=== PATIENT | male | born 1950 | race Caucasian/White ===

== ENCOUNTER 2017-09-12 18:17 | Inpatient (IN) | payer MEDICARE ==
[~2017-09-12] VITALS: Ht 180.3 cm; Wt 40.6 kg
[2017-09-12 18:58] LABS: BASOPHILS 0 % (0-2); EOSINOPHILS 0 % (0-7); HEMATOCRIT 39.9 % (36.0-48.0); HEMOGLOBIN 12.9 g/dL (12-16); IMMATURE GRANULOCYTES 0.3 % (0-5); LYMPHOCYTES 4.8 % (15-50); MCH 26.6 pg (26.0-34.0); MCHC 32.3 g/dL (31.0-37.0); MCV 82.3 fL (80.0-100.0); MEAN PLATELET VOLUME 10.8 fL (7.4-10.4); MONOCYTES 5.6 % (2-11); NEUTROPHILS 89.3 % (40-80); PLATELET COUNT 127 10x3/uL (130-400); RBC 4.85 10x6/uL (4.00-5.40); RDW 15.3 % (11.5-14.5); WBC 14.8 10x3/uL (4.8-10.8)
[2017-09-12 19:13] LABS: APTT 30.5 SECONDS (22.8-39.4); INR 1.39 (0.85-1.17); PROTIME 16.6 SECONDS (11.6-15.0)
[2017-09-12 19:39] LABS: D-DIMER-QUANTITATIVE 19.45 ug/mLFEU (0.20-0.54)
[2017-09-12 19:43] LABS: ALKALINE PHOSPHATASE 99 U/L (46-116); ALT (SGPT) 64 U/L (10-68); CALC OSMOLALITY 306 mosm/kg (275-300); CALCIUM 8.5 mg/dL (8.5-10.1); CARBON DIOXIDE 17.5 mmol/L (21.0-32.0); CHLORIDE - SERUM 108 mmol/L (98-107); CREATININE - SERUM 1.7 mg/dL (0.6-1.3); GLUCOSE 116 mg/dL (74-106); POTASSIUM - SERUM 4.4 mmol/L (3.5-5.1); PROTEIN - SERUM 6.3 g/dL (6.4-8.2); SODIUM 144 mmol/L (136-145); UREA NITROGEN 66 mg/dL (7-18); eGFR NON AFRICAN AMERICAN 32 mL/min (90-120)
[2017-09-12 20:00] LABS: CKMB 11.5 U/L (0.0-3.6); CREATINE KINASE 240 UL (21-215); PRO BNP 210880 pg/mL (0-125)
[2017-09-12 20:02] LABS: TROPONIN-I 0.628 ng/mL (0.000-0.060)
[2017-09-13 01:57] VITALS: BP 177/93; BMI 14.5
[2017-09-13 04:00] VITALS: BP 166/91
[2017-09-13 05:48] LABS: BASOPHILS 0 % (0-2); EOSINOPHILS 0 % (0-7); HEMATOCRIT 38.5 % (42.0-54.0); HEMOGLOBIN 12.5 g/dL (13.5-17.5); IMMATURE GRANULOCYTES 0.1 % (0-5); MCH 26.5 pg (26.0-34.0); MCHC 32.5 g/dL (31.0-37.0); MCV 81.6 fL (80.0-100.0); MONOCYTES 3.2 % (2-11); NEUTROPHILS 90.7 % (40-80); PLATELET COUNT 112 10x3/uL (130-400); RBC 4.72 10x6/uL (4.20-6.10); RDW 15.4 % (11.5-14.5)
[2017-09-13 05:49] LABS: WBC 8.9 10x3/uL (4.8-10.8)
[2017-09-13 06:51] LABS: CALC OSMOLALITY 308 mosm/kg (275-300); CALCIUM 8.1 mg/dL (8.5-10.1); CARBON DIOXIDE 15.1 mmol/L (21.0-32.0); CHLORIDE - SERUM 107 mmol/L (98-107); CKMB 25.8 U/L (0.0-3.6); CREATINE KINASE 319 UL (21-232); CREATININE - SERUM 1.7 mg/dL (0.6-1.3); GLUCOSE 119 mg/dL (74-106); POTASSIUM - SERUM 4.3 mmol/L (3.5-5.1); SODIUM 145 mmol/L (136-145); TROPONIN-I 3.371 ng/mL (0.000-0.060); UREA NITROGEN 67 mg/dL (7-18); eGFR NON AFRICAN AMERICAN 43 mL/min (90-120)
[2017-09-13 09:24] VITALS: BP 166/80
[2017-09-13 11:38] VITALS: BP 180/88
[2017-09-13 11:40] VITALS: Ht 180.3 cm; Wt 40.6 kg
[2017-09-13 13:14] LABS: CKMB 30.3 U/L (0.0-3.6); CREATINE KINASE 317 UL (21-232)
[2017-09-13 15:59] VITALS: BP 173/87
[2017-09-13 18:38] LABS: CKMB 22.3 U/L (0.0-3.6); CREATINE KINASE 284 UL (21-232); TROPONIN-I 7.062 ng/mL (0.000-0.060)
[2017-09-13 20:30] VITALS: BP 155/87
[2017-09-14 00:30] VITALS: BP 172/72
[2017-09-14 04:30] VITALS: BP 166/79
[2017-09-14 06:28] LABS: BASOPHILS 0.1 % (0-2); EOSINOPHILS 0 % (0-7); HEMATOCRIT 42.2 % (42.0-54.0); HEMOGLOBIN 13.4 g/dL (13.5-17.5); IMMATURE GRANULOCYTES 0.2 % (0-5); LYMPHOCYTES 5.3 % (15-50); MCH 26.4 pg (26.0-34.0); MCHC 31.8 g/dL (31.0-37.0); MCV 83.2 fL (80.0-100.0); MEAN PLATELET VOLUME 10.8 fL (7.4-10.4); MONOCYTES 4.2 % (2-11); NEUTROPHILS 90.2 % (40-80); PLATELET COUNT 122 10x3/uL (130-400); RBC 5.07 10x6/uL (4.20-6.10); RDW 15.5 % (11.5-14.5)
[2017-09-14 06:50] LABS: BILIRUBIN - TOTAL 0.67 mg/dL (0.2-1.3); CALCIUM 8.2 mg/dL (8.5-10.1); CREATININE - SERUM 1.7 mg/dL (0.6-1.3); MAGNESIUM - SERUM 2.4 mg/dL (1.8-2.4); PHOSPHOROUS 4.6 mg/dL (2.5-4.9); PROTEIN - SERUM 7.1 g/dL (6.4-8.2)
[2017-09-14 06:54] LABS: ANION GAP 18.4 mmol/L (8-16); CARBON DIOXIDE 22.1 mmol/L (21.0-32.0); POTASSIUM - SERUM 3.5 mmol/L (3.5-5.1); TROPONIN-I 5.818 ng/mL (0.000-0.060)
[2017-09-14 08:29] VITALS: BP 162/79
[2017-09-14 11:31] VITALS: BP 143/68
[2017-09-14 15:47] VITALS: BP 156/89
[2017-09-14 20:30] VITALS: BP 112/92
[2017-09-15 00:30] VITALS: BP 153/68
[2017-09-15 04:30] VITALS: BP 164/79
[2017-09-15 04:32] LABS: BASOPHILS 0 % (0-2); EOSINOPHILS 0 % (0-7); HEMATOCRIT 38.7 % (42.0-54.0); HEMOGLOBIN 12.4 g/dL (13.5-17.5); IMMATURE GRANULOCYTES 0.2 % (0-5); LYMPHOCYTES 2.4 % (15-50); MCH 26.3 pg (26.0-34.0); MEAN PLATELET VOLUME 10.8 fL (7.4-10.4); MONOCYTES 2.1 % (2-11); NEUTROPHILS 95.3 % (40-80); PLATELET COUNT 142 10x3/uL (130-400); RBC 4.72 10x6/uL (4.20-6.10); RDW 15.2 % (11.5-14.5)
[2017-09-15 04:37] LABS: WBC 9.7 10x3/uL (4.8-10.8)
[2017-09-15 05:02] LABS: ALBUMIN 2.7 g/dL (3.4-5.0); ANION GAP 16.5 mmol/L (8-16); BILIRUBIN - TOTAL 0.7 mg/dL (0.2-1.3); CALCIUM 8.4 mg/dL (8.5-10.1); CARBON DIOXIDE 25.1 mmol/L (21.0-32.0); CHOL - HDL RATIO 3.3 ratio (2.3-4.9); CREATININE - SERUM 1.5 mg/dL (0.6-1.3); LDL-HDL RATIO 1.6 ratio (1.5-3.5); MAGNESIUM - SERUM 2.3 mg/dL (1.8-2.4); PHOSPHOROUS 4.6 mg/dL (2.5-4.9); POTASSIUM - SERUM 3.6 mmol/L (3.5-5.1); PROTEIN - SERUM 6.7 g/dL (6.4-8.2); THYROID STIMULATING HORMONE 0.62 uIU/mL (0.36-3.74)
[2017-09-15 08:24] VITALS: BP 159/74
[2017-09-15 11:12] VITALS: BP 151/75
[2017-09-15 15:07] VITALS: BP 136/65
[2017-09-15 20:00] VITALS: BP 168/117
[2017-09-16 00:49] VITALS: BP 171/70
[2017-09-16 05:56] LABS: BASOPHILS 0 % (0-2); EOSINOPHILS 0 % (0-7); HEMATOCRIT 41.6 % (42.0-54.0); HEMOGLOBIN 13.1 g/dL (13.5-17.5); IMMATURE GRANULOCYTES 0.2 % (0-5); LYMPHOCYTES 1.8 % (15-50); MCH 26.1 pg (26.0-34.0); MCHC 31.5 g/dL (31.0-37.0); MEAN PLATELET VOLUME 10.6 fL (7.4-10.4); MONOCYTES 4.7 % (2-11); NEUTROPHILS 93.3 % (40-80); PLATELET COUNT 166 10x3/uL (130-400); RBC 5.01 10x6/uL (4.20-6.10); RDW 15.1 % (11.5-14.5)
[2017-09-16 06:21] LABS: ANION GAP 13.1 mmol/L (8-16); CALCIUM 8.7 mg/dL (8.5-10.1); CARBON DIOXIDE 27.3 mmol/L (21.0-32.0); CREATININE - SERUM 1.4 mg/dL (0.6-1.3); MAGNESIUM - SERUM 2.3 mg/dL (1.8-2.4); PHOSPHOROUS 3.9 mg/dL (2.5-4.9); POTASSIUM - SERUM 3.4 mmol/L (3.5-5.1)
[2017-09-16 06:27] LABS: WBC 14.9 10x3/uL (4.8-10.8)
[2017-09-16 06:46] VITALS: BP 137/68
[2017-09-16 07:44] VITALS: BP 184/80
[2017-09-16 11:23] VITALS: BP 142/67
[2017-09-16 14:46] VITALS: BP 130/66
[2017-09-16 21:33] VITALS: BP 124/52
[2017-09-17 01:40] VITALS: BP 136/78
[2017-09-17 05:35] VITALS: BP 147/79
[2017-09-17 05:45] LABS: BASOPHILS 0 % (0-2); EOSINOPHILS 0 % (0-7); HEMATOCRIT 42.5 % (42.0-54.0); HEMOGLOBIN 13.4 g/dL (13.5-17.5); IMMATURE GRANULOCYTES 0.2 % (0-5); LYMPHOCYTES 3.6 % (15-50); MCH 26.3 pg (26.0-34.0); MCHC 31.5 g/dL (31.0-37.0); MCV 83.3 fL (80.0-100.0); MEAN PLATELET VOLUME 10.8 fL (7.4-10.4); MONOCYTES 3.5 % (2-11); NEUTROPHILS 92.7 % (40-80); PLATELET COUNT 163 10x3/uL (130-400); RDW 15.2 % (11.5-14.5); WBC 16.4 10x3/uL (4.8-10.8)
[2017-09-17 06:08] LABS: ANION GAP 14.2 mmol/L (8-16); CALCIUM 8.7 mg/dL (8.5-10.1); CARBON DIOXIDE 26.5 mmol/L (21.0-32.0); CREATININE - SERUM 1.3 mg/dL (0.6-1.3); MAGNESIUM - SERUM 2.6 mg/dL (1.8-2.4); PHOSPHOROUS 3.1 mg/dL (2.5-4.9); POTASSIUM - SERUM 3.7 mmol/L (3.5-5.1)
[2017-09-17 08:00] VITALS: BP 160/82
[2017-09-17 17:09] VITALS: BP 155/78
[2017-09-17 21:01] VITALS: BP 145/55
[2017-09-18 06:05] LABS: BASOPHILS 0 % (0-2); EOSINOPHILS 0 % (0-7); HEMATOCRIT 38.1 % (42.0-54.0); HEMOGLOBIN 11.9 g/dL (13.5-17.5); IMMATURE GRANULOCYTES 0.2 % (0-5); LYMPHOCYTES 2.3 % (15-50); MCH 26.2 pg (26.0-34.0); MCHC 31.2 g/dL (31.0-37.0); MCV 83.7 fL (80.0-100.0); MEAN PLATELET VOLUME 10.3 fL (7.4-10.4); MONOCYTES 2.7 % (2-11); NEUTROPHILS 94.8 % (40-80); PLATELET COUNT 159 10x3/uL (130-400); RBC 4.55 10x6/uL (4.20-6.10); RDW 15.6 % (11.5-14.5); WBC 17.7 10x3/uL (4.8-10.8)
[2017-09-18 06:22] VITALS: BP 165/74
[2017-09-18 06:24] LABS: CALCIUM 8.4 mg/dL (8.5-10.1); CARBON DIOXIDE 24.9 mmol/L (21.0-32.0); CREATININE - SERUM 1.3 mg/dL (0.6-1.3); MAGNESIUM - SERUM 2.4 mg/dL (1.8-2.4); POTASSIUM - SERUM 3.9 mmol/L (3.5-5.1)
[2017-09-18 08:51] VITALS: BP 132/68
[2017-09-18 11:40] VITALS: BP 136/75
[2017-09-18 16:48] VITALS: BP 141/70
[2017-09-18 22:13] VITALS: BP 175/74
[2017-09-19 01:26] VITALS: BP 182/79
[2017-09-19 05:00] VITALS: BP 173/75
[2017-09-19 06:08] LABS: BASOPHILS 0 % (0-2); EOSINOPHILS 0 % (0-7); HEMATOCRIT 37.4 % (42.0-54.0); HEMOGLOBIN 11.6 g/dL (13.5-17.5); IMMATURE GRANULOCYTES 0.4 % (0-5); LYMPHOCYTES 1.1 % (15-50); MCV 83.9 fL (80.0-100.0); MEAN PLATELET VOLUME 10.7 fL (7.4-10.4); MONOCYTES 2.7 % (2-11); NEUTROPHILS 95.8 % (40-80); PLATELET COUNT 188 10x3/uL (130-400); RBC 4.46 10x6/uL (4.20-6.10); RDW 15.5 % (11.5-14.5); WBC 18.1 10x3/uL (4.8-10.8)
[2017-09-19 06:22] LABS: ALBUMIN 2.2 g/dL (3.4-5.0); ANION GAP 13.4 mmol/L (8-16); BILIRUBIN - TOTAL 0.5 mg/dL (0.2-1.3); CALCIUM 8.6 mg/dL (8.5-10.1); CARBON DIOXIDE 23.8 mmol/L (21.0-32.0); CREATININE - SERUM 1.2 mg/dL (0.6-1.3); POTASSIUM - SERUM 4.2 mmol/L (3.5-5.1)
[2017-09-19 08:38] VITALS: BP 193/80
[2017-09-19 11:40] VITALS: BP 107/74
[2017-09-19 15:47] VITALS: BP 171/81
[2017-09-19 19:00] VITALS: BP 148/69
[2017-09-20] VITALS: BP 168/76
[2017-09-20 04:00] VITALS: BP 112/76
[2017-09-20 07:53] VITALS: BP 187/72
[2017-09-20 11:11] VITALS: BP 146/90
[2017-09-20 15:19] VITALS: BP 172/73
[2017-09-20 19:00] VITALS: BP 196/83
[2017-09-21] VITALS: BP 173/86
[2017-09-21 04:00] VITALS: BP 178/76
[2017-09-21 06:16] LABS: BASOPHILS 0.1 % (0-2); EOSINOPHILS 0.3 % (0-7); HEMATOCRIT 36.6 % (42.0-54.0); HEMOGLOBIN 11.9 g/dL (13.5-17.5); IMMATURE GRANULOCYTES 0.3 % (0-5); LYMPHOCYTES 4.1 % (15-50); MCH 26.4 pg (26.0-34.0); MCHC 32.5 g/dL (31.0-37.0); MCV 81.2 fL (80.0-100.0); MEAN PLATELET VOLUME 10.6 fL (7.4-10.4); MONOCYTES 7.9 % (2-11); NEUTROPHILS 87.3 % (40-80); RBC 4.51 10x6/uL (4.20-6.10); RDW 14.9 % (11.5-14.5)
[2017-09-21 06:19] LABS: PLATELET COUNT 239 10x3/uL (130-400)
[2017-09-21 06:33] LABS: CALC OSMOLALITY 273 mosm/kg (275-300); CALCIUM 8.1 mg/dL (8.5-10.1); CARBON DIOXIDE 22.8 mmol/L (21.0-32.0); CHLORIDE - SERUM 102 mmol/L (98-107); GLUCOSE 99 mg/dL (74-106); POTASSIUM - SERUM 3.6 mmol/L (3.5-5.1); SODIUM 134 mmol/L (136-145); UREA NITROGEN 29 mg/dL (7-18); eGFR NON AFRICAN AMERICAN 79 mL/min (90-120)
[2017-09-21 09:53] VITALS: BP 122/68
[2017-09-21 12:49] VITALS: BP 147/71
[2017-09-21 16:30] VITALS: BP 140/70
[2017-09-21 20:00] VITALS: BP 166/76
[2017-09-22] VITALS: BP 190/87
[2017-09-22 04:00] VITALS: BP 158/79
[2017-09-22 06:10] LABS: BASOPHILS 0 % (0-2); EOSINOPHILS 0.2 % (0-7); HEMATOCRIT 38.5 % (42.0-54.0); HEMOGLOBIN 12.2 g/dL (13.5-17.5); IMMATURE GRANULOCYTES 0.6 % (0-5); LYMPHOCYTES 5.2 % (15-50); MCH 26.1 pg (26.0-34.0); MCHC 31.7 g/dL (31.0-37.0); MCV 82.4 fL (80.0-100.0); MEAN PLATELET VOLUME 10.9 fL (7.4-10.4); PLATELET COUNT 269 10x3/uL (130-400); RBC 4.67 10x6/uL (4.20-6.10); RDW 15.1 % (11.5-14.5)
[2017-09-22 06:24] LABS: CALC OSMOLALITY 277 mosm/kg (275-300); CALCIUM 8.2 mg/dL (8.5-10.1); CARBON DIOXIDE 24.9 mmol/L (21.0-32.0); CHLORIDE - SERUM 102 mmol/L (98-107); GLUCOSE 100 mg/dL (74-106); POTASSIUM - SERUM 3.6 mmol/L (3.5-5.1); SODIUM 136 mmol/L (136-145); UREA NITROGEN 30 mg/dL (7-18); eGFR NON AFRICAN AMERICAN 79 mL/min (90-120)
[2017-09-22 08:30] VITALS: BP 155/66
[2017-09-22 11:28] VITALS: BP 147/75
[2017-09-22] MEDS ORDERED: BROVANA15 MCG/2 M INH (11:28)
[2017-09-22] MEDS ORDERED: MEGACE400 MG/10 PO (11:28)
[2017-09-22] MEDS ORDERED: XOPENEX 0.0.63 MG/3 UPD (11:29)
[2017-09-22] MEDS ORDERED: ATROVENT 0.02%2.5 ML UPD (11:29)
[2017-09-22] MEDS ORDERED: LOVENOX40 MG/0.4 SC (11:29)
[2017-09-22] MEDS ORDERED: LOPRESSOR25 MG PO (11:30)
[2017-09-22] MEDS ORDERED: LISINOPRIL5 MG PO (11:30)
[2017-09-22] MEDS ORDERED: TESSALON PERLE100 MG PO (11:31)
[2017-09-22] MEDS ORDERED: D5W 1000 ML I1000 ML IV (11:31)
[2017-09-22] MEDS ORDERED: PULMICORT0.5 MG/21 INH (11:31)
[2017-09-22] MEDS ORDERED: MUCINEX DM ER1 EAC1 PO (11:32)
[2017-09-22] MEDS ORDERED: SINGULAIR10 MG PO (11:32)
[2017-09-22] MEDS ORDERED: FLUTICASONE PRO16 GM NASAL (11:33)
[2017-09-22] MEDS ORDERED: FLORAJEN3 CAPS460 MG PO (11:33)
[2017-09-22] MEDS ORDERED: PREDNISONE20 MG (11:37)
[2017-09-22 15:45] VITALS: BP 138/60
== END 2017-09-22 18:20 | DRG 871 ==
LOC: EDSEX 18:17 → D.ER 18:17 → D.M2 23:40
PROVIDERS: Emergency Medicine; Family Medicine; Internal Medicine Pulmonary Disease
DX: A41.9 Sepsis, unspecified organism (principal); J69.0 Pneumonitis due to inhalation of food and vomit; I50.21 Acute systolic (congestive) heart failure; J96.21 Acute and chronic respiratory failure with hypoxia; I13.0 Hypertensive heart and chronic kidney disease with heart failure and stage 1 through stage 4 chronic kidney disease, or unspecified chronic kidney disease; N17.9 Acute kidney failure, unspecified; I42.9 Cardiomyopathy, unspecified; J44.1 Chronic obstructive pulmonary disease with (acute) exacerbation; I24.8 Other forms of acute ischemic heart disease; E46 Unspecified protein-calorie malnutrition; Z68.1 Body mass index [BMI] 19.9 or less, adult; N18.9 Chronic kidney disease, unspecified; R26.89 Other abnormalities of gait and mobility; I27.20 Pulmonary hypertension, unspecified; F41.9 Anxiety disorder, unspecified; Z72.0 Tobacco use; I08.3 Combined rheumatic disorders of mitral, aortic and tricuspid valves; J30.9 Allergic rhinitis, unspecified; D69.6 Thrombocytopenia, unspecified; Z66 Do not resuscitate

== ENCOUNTER 2017-09-22 15:29 | Inpatient (IN) | payer MEDICARE ==
[~2017-09-22] VITALS: Ht 180.3 cm; Wt 54.9 kg
--- NOTE | ~2017-09-22 | RHP ---
PATIENT: HOLLI NORRIS MEDICAL RECORD: [id number] ACCOUNT: [id number] LOCATION:[facility]1112 : 50 ADMISSION DATE: 09/22/17 REHABILITATION HISTORY AND PHYSICAL EXAMINATION POST ADMISSION PHYSICIAN EXAMINATION POST-ADMISSION PHYSICAL EXAM AND HISTORY AND PHYSICAL DATE OF ADMISSION: 09/22/2017 ADMITTING DIAGNOSES: Congestive heart failure induced myopathy. HISTORY OF PRESENT ILLNESS: The patient is a 67-year-old gentleman who was brought in secondary to congestive heart failure myopathy. He was brought to the ED by family with progressing worsening shortness of breath, nonproductive cough and weakness, has been going on for approximately a few weeks prior to this. He was found to be lethargic, very soft spoken due to his weakness. He was found to be hypoxic and had to be placed on supplemental O2. His BNP was over 21,000. His D-dimer was elevated at 19.45. Chest x-ray showed cardiomegaly and bilateral interstitial and alveolar infiltrates. V/Q scan showed matching bilateral deficits suggesting an intermediate probability of pulmonary emboli. His white count was 14.8 with 89% PMNs. He has also had a positive troponin at 3.37. He has a past medical history of hypertension, lung carcinoma, smoking. He has been treated for acute systolic heart failure with an EF of 20% with cardiomyopathy. He got acute exacerbation of COPD, pneumonia, metabolic encephalopathy, acute kidney injury, and chronic kidney disease with renal insufficiency, poor p.o. intake and debility. He lives at home with his sister and was moderately independent with use of a single point cane and was independent with ADLs. He has had progressive weakness with moderately becoming weaker with extended hospital stay due to poor p.o. intake. He has been seen by speech therapy for oropharyngeal dysphagia and dysarthria of speech, and has been on a mechanical soft diet with nectar thickened liquids and has been continued with speech therapy. He has been weaned down to 2 liters of O2. He has been seen and followed by physical therapy and has proximal weakness with difficulty rising from bed to chair. He is currently minimum assist to total assist with ADLs, max assist to total assist with mobility. He and his family plan on him returning home hopefully moving back in with his sister. COMORBIDITIES: Include oropharyngeal dysphagia, dysarthria of speech, metabolic encephalopathy, acute hypoxic respiratory failure, COPD exacerbation, community-acquired pneumonia, acute systolic CHF. He has got an intermediate probability of pulmonary embolus. He has got pulmonary hypertension, anemia, history of tobacco use, leukocytosis, hypertension, allergic rhinitis, debility, anxiety, tricuspid regurg and aortic insufficiency. PAST MEDICAL HISTORY: Significant for weakness, hypertension, pneumonia, bone cancer, tobacco smoker, urinary incontinence, anorexia, anxiety and skin rash. PAST SURGICAL HISTORY: None. ALLERGIES: No known drug allergies. CURRENT MEDICATIONS: He is on a prednisone tapering dose. He is on Zestril 5 mg daily, Floranex daily. He is on Flonase nasal spray 2 sprays daily, Lovenox 40 mg subQ daily, MiraLax 17 g in 8 ounces of water daily, Singulair 10 mg at HISTORY AND PHYSICAL [id number] HOLLI NORRIS bedtime, metoprolol 25 mg b.i.d., Megace 400 mg b.i.d., Xopenex 0.63 mg q.6 hours p.r.n., Atrovent updrafts, Mucinex 1 tab b.i.d., Pulmicort 0.5 mg b.i.d., Tessalon Perles 100 mg t.i.d. p.r.n. and Brovana 15 mcg b.i.d. HABITS: No current alcohol or tobacco use. He does have a history of tobacco use. FAMILY HISTORY: Noncontributory. SOCIAL HISTORY: The patient hopes to return back home and get back to his prior level of functioning. REVIEW OF SYSTEMS: GENERAL: Does complain of weakness and fatigue. HEENT: Denies cold, cough, or congestion. CARDIOVASCULAR: Denies any chest pain. PHYSICAL EXAMINATION: VITAL SIGNS: Stable, afebrile. GENERAL: Elderly gentleman in no acute distress, alert upon exam. HEENT: Normocephalic and atraumatic. Mucosa moist. NECK: Supple. No lymphadenopathy. LUNGS: Coarse breath sounds bilaterally. CARDIOVASCULAR: Regular rate and rhythm. ABDOMEN: Benign. EXTREMITIES: No clubbing, cyanosis or edema. NEUROLOGIC: Seems intact. LABORATORY DATA: His white count is 11.1, H&H of 11.5 and 36.7, and platelet count is 280. Sodium is 136, potassium 3.7, BUN and creatinine of 13 and 1.2 and blood sugar is noted to be 104. ASSESSMENT: This is a 67-year-old gentleman admitted to the rehab with a working diagnosis of congestive heart failure induced myopathy. The patient has potential to make improvement. We instituted the following multidisciplinary therapies including, but not limited physical, occupational, respiratory, speech, nutritional services, prosthetics and orthotics. Given his complex medical conditions and risk of further medical complications, rehabilitation service cannot be provided at a low level of care such as a skilled nurse facility. PLAN: 1. Admit to [facility] rehab for intensive inpatient therapy to include the following disciplines: A. Physical therapy to improve gait, all transfer skills and bed mobility to a modified independent level. B. Occupational therapy to improve activities of daily living to a modified independent level. C. Case management to assist with discharge planning and placement options. D. Nutrition to assist with nutritional needs. E. Rehabilitation nursing to assist in monitoring the patient's underlying medical conditions and to assist with any type bowel or bladder management. 2. The patient's current medical care and medication will be continued. 3. The patient will be placed on standard fall precautions. 4. The patient's estimated length of stay is approximately 7-10 days. HISTORY AND PHYSICAL [id number] HOLLI NORRIS 5. Discuss this patient during care team staff meeting this week. TRANSINT:[id number] Voice Confirmation ID: [id number] DOCUMENT ID: [id number] CASH notes whether there has been none or any medical/functional change since admission: - No change since prescreen. CASH attests patient continues to be appropriate for IRF: - Continues to be appropriate. SHARITA ROBERT MD at 1355 CC: [id number] DICTATION DATE: 09/23/17 1039 SOLE CEMENTER: 09/23/17 1210 ADM IN [facility] [address] [place] [address]
[~2017-09-22 15:29] MED LIST: ATROVENT 0.02%2.5 ML UPD; BROVANA15 MCG/2 M INH; D5W 1000 ML I1000 ML IV; FLORAJEN3 CAPS460 MG PO; FLUTICASONE PRO16 GM NASAL; LISINOPRIL5 MG PO; LOPRESSOR25 MG PO; LOVENOX40 MG/0.4 SC; MEGACE400 MG/10 PO; MUCINEX DM ER1 EAC1 PO; PREDNISONE20 MG; PULMICORT0.5 MG/21 INH; SINGULAIR10 MG PO; TESSALON PERLE100 MG PO; XOPENEX 0.0.63 MG/3 UPD
[2017-09-22 18:20] VITALS: BP 107/62
[2017-09-22 20:16] VITALS: BP 107/62; BMI 16.9
[2017-09-23 06:46] LABS: BASOPHILS 0 % (0-2); EOSINOPHILS 0.2 % (0-7); HEMATOCRIT 36.7 % (42.0-54.0); HEMOGLOBIN 11.5 g/dL (13.5-17.5); IMMATURE GRANULOCYTES 0.5 % (0-5); LYMPHOCYTES 7.1 % (15-50); MCH 25.8 pg (26.0-34.0); MCHC 31.3 g/dL (31.0-37.0); MCV 82.3 fL (80.0-100.0); MEAN PLATELET VOLUME 10.5 fL (7.4-10.4); NEUTROPHILS 84.2 % (40-80); PLATELET COUNT 280 10x3/uL (130-400); RBC 4.46 10x6/uL (4.20-6.10); RDW 15.1 % (11.5-14.5); WBC 11.1 10x3/uL (4.8-10.8)
[2017-09-23 07:02] LABS: ANION GAP 10.3 mmol/L (8-16); CALCIUM 8.1 mg/dL (8.5-10.1); CARBON DIOXIDE 24.4 mmol/L (21.0-32.0); CREATININE - SERUM 1.2 mg/dL (0.6-1.3); POTASSIUM - SERUM 3.7 mmol/L (3.5-5.1)
[2017-09-23 08:00] VITALS: BP 194/83
[2017-09-23 14:18] VITALS: Ht 180.3 cm; Wt 54.9 kg
[2017-09-23 19:09] VITALS: BP 152/66
[2017-09-24 07:08] LABS: BASOPHILS 0.1 % (0-2); EOSINOPHILS 0.1 % (0-7); HEMATOCRIT 37.2 % (42.0-54.0); HEMOGLOBIN 11.8 g/dL (13.5-17.5); IMMATURE GRANULOCYTES 0.4 % (0-5); LYMPHOCYTES 6.6 % (15-50); MCHC 31.7 g/dL (31.0-37.0); MCV 82.1 fL (80.0-100.0); MEAN PLATELET VOLUME 10.2 fL (7.4-10.4); MONOCYTES 6.1 % (2-11); NEUTROPHILS 86.7 % (40-80); PLATELET COUNT 289 10x3/uL (130-400); RBC 4.53 10x6/uL (4.20-6.10); RDW 15.3 % (11.5-14.5)
[2017-09-24 07:11] LABS: WBC 14.1 10x3/uL (4.8-10.8)
[2017-09-24 07:28] LABS: ANION GAP 13.4 mmol/L (8-16); CARBON DIOXIDE 24.2 mmol/L (21.0-32.0); CREATININE - SERUM 1.3 mg/dL (0.6-1.3); POTASSIUM - SERUM 3.6 mmol/L (3.5-5.1)
[2017-09-24 08:00] VITALS: BP 169/82
[2017-09-24 22:07] VITALS: BP 155/65
[2017-09-25 08:00] VITALS: BP 154/60
[2017-09-25 19:09] VITALS: BP 151/75
[2017-09-26 06:34] LABS: BASOPHILS 0.1 % (0-2); EOSINOPHILS 0.5 % (0-7); HEMATOCRIT 38.1 % (42.0-54.0); HEMOGLOBIN 11.8 g/dL (13.5-17.5); IMMATURE GRANULOCYTES 0.4 % (0-5); LYMPHOCYTES 8.9 % (15-50); MCH 25.8 pg (26.0-34.0); MCV 83.2 fL (80.0-100.0); MEAN PLATELET VOLUME 10.6 fL (7.4-10.4); MONOCYTES 5.9 % (2-11); NEUTROPHILS 84.2 % (40-80); PLATELET COUNT 289 10x3/uL (130-400); RBC 4.58 10x6/uL (4.20-6.10); RDW 15.4 % (11.5-14.5); WBC 11.3 10x3/uL (4.8-10.8)
[2017-09-26 07:13] LABS: ANION GAP 11.5 mmol/L (8-16); CALCIUM 8.3 mg/dL (8.5-10.1); CARBON DIOXIDE 24.7 mmol/L (21.0-32.0); CREATININE - SERUM 1.2 mg/dL (0.6-1.3); POTASSIUM - SERUM 4.2 mmol/L (3.5-5.1)
[2017-09-26 08:00] VITALS: BP 154/68
[2017-09-26 20:39] VITALS: BP 152/68
[2017-09-27 08:38] VITALS: BP 149/68
[2017-09-27 23:16] VITALS: BP 140/66
[2017-09-28 09:09] VITALS: BP 132/59
[2017-09-28 22:24] VITALS: BP 156/75
[2017-09-29 06:02] LABS: BASOPHILS 0.1 % (0-2); EOSINOPHILS 0.4 % (0-7); HEMATOCRIT 39.9 % (42.0-54.0); HEMOGLOBIN 12.4 g/dL (13.5-17.5); IMMATURE GRANULOCYTES 0.4 % (0-5); LYMPHOCYTES 10.9 % (15-50); MCHC 31.1 g/dL (31.0-37.0); MCV 83.6 fL (80.0-100.0); MEAN PLATELET VOLUME 10.4 fL (7.4-10.4); MONOCYTES 4.5 % (2-11); NEUTROPHILS 83.7 % (40-80); PLATELET COUNT 261 10x3/uL (130-400); RBC 4.77 10x6/uL (4.20-6.10); RDW 15.9 % (11.5-14.5); WBC 8.2 10x3/uL (4.8-10.8)
[2017-09-29 06:28] LABS: ANION GAP 12.1 mmol/L (8-16); CALCIUM 7.8 mg/dL (8.5-10.1); CARBON DIOXIDE 26.4 mmol/L (21.0-32.0); CREATININE - SERUM 1.3 mg/dL (0.6-1.3); POTASSIUM - SERUM 4.5 mmol/L (3.5-5.1)
[2017-09-29 08:00] VITALS: BP 169/73
[2017-09-29 19:54] VITALS: BP 164/70
[2017-09-30 08:00] VITALS: BP 169/67
[2017-09-30 19:48] VITALS: BP 126/60
[2017-10-01 06:47] LABS: BASOPHILS 0.2 % (0-2); EOSINOPHILS 0.6 % (0-7); HEMATOCRIT 38.5 % (42.0-54.0); IMMATURE GRANULOCYTES 0.5 % (0-5); LYMPHOCYTES 16.7 % (15-50); MCH 26.2 pg (26.0-34.0); MCHC 31.2 g/dL (31.0-37.0); MCV 84.1 fL (80.0-100.0); MEAN PLATELET VOLUME 10.1 fL (7.4-10.4); MONOCYTES 6.7 % (2-11); NEUTROPHILS 75.3 % (40-80); PLATELET COUNT 232 10x3/uL (130-400); RBC 4.58 10x6/uL (4.20-6.10); RDW 16.1 % (11.5-14.5); WBC 6.6 10x3/uL (4.8-10.8)
[2017-10-01 07:12] LABS: ANION GAP 12.3 mmol/L (8-16); CALCIUM 7.9 mg/dL (8.5-10.1); CARBON DIOXIDE 25.9 mmol/L (21.0-32.0); CREATININE - SERUM 1.1 mg/dL (0.6-1.3); POTASSIUM - SERUM 4.2 mmol/L (3.5-5.1)
[2017-10-01 08:00] VITALS: BP 122/68
[2017-10-01 18:30] VITALS: BP 142/71
[2017-10-02 08:00] VITALS: BP 166/71
[2017-10-02 20:05] VITALS: BP 136/51
[2017-10-03 06:36] LABS: BASOPHILS 0.3 % (0-2); EOSINOPHILS 0.5 % (0-7); HEMATOCRIT 39.6 % (42.0-54.0); HEMOGLOBIN 12.3 g/dL (13.5-17.5); IMMATURE GRANULOCYTES 0.2 % (0-5); LYMPHOCYTES 17.5 % (15-50); MCH 25.8 pg (26.0-34.0); MCHC 31.1 g/dL (31.0-37.0); MCV 83.2 fL (80.0-100.0); MEAN PLATELET VOLUME 10.2 fL (7.4-10.4); MONOCYTES 5.6 % (2-11); NEUTROPHILS 75.9 % (40-80); PLATELET COUNT 221 10x3/uL (130-400); RBC 4.76 10x6/uL (4.20-6.10); RDW 16.2 % (11.5-14.5); WBC 6.6 10x3/uL (4.8-10.8)
[2017-10-03 07:00] LABS: ANION GAP 12.5 mmol/L (8-16); CREATININE - SERUM 1.1 mg/dL (0.6-1.3); POTASSIUM - SERUM 4.5 mmol/L (3.5-5.1)
[2017-10-03 08:00] VITALS: BP 164/65
[2017-10-03 19:00] VITALS: BP 136/63
[2017-10-04 09:27] VITALS: BP 185/82
[2017-10-04 20:24] VITALS: BP 140/63
[2017-10-05 08:56] VITALS: BP 185/73
[2017-10-05 19:43] VITALS: BP 152/72
[2017-10-06 06:00] LABS: BASOPHILS 0.3 % (0-2); EOSINOPHILS 1.3 % (0-7); HEMATOCRIT 39.7 % (42.0-54.0); HEMOGLOBIN 12.4 g/dL (13.5-17.5); IMMATURE GRANULOCYTES 0.3 % (0-5); LYMPHOCYTES 17.5 % (15-50); MCH 26.4 pg (26.0-34.0); MCHC 31.2 g/dL (31.0-37.0); MCV 84.6 fL (80.0-100.0); MEAN PLATELET VOLUME 10.2 fL (7.4-10.4); MONOCYTES 7.5 % (2-11); NEUTROPHILS 73.1 % (40-80); RBC 4.69 10x6/uL (4.20-6.10); RDW 16.8 % (11.5-14.5); WBC 6.1 10x3/uL (4.8-10.8)
[2017-10-06 06:01] LABS: PLATELET COUNT 176 10x3/uL (130-400)
[2017-10-06 06:10] LABS: ANION GAP 13.6 mmol/L (8-16); CALCIUM 8.1 mg/dL (8.5-10.1); CARBON DIOXIDE 24.6 mmol/L (21.0-32.0); CREATININE - SERUM 1.1 mg/dL (0.6-1.3); POTASSIUM - SERUM 4.2 mmol/L (3.5-5.1)
[2017-10-06 08:00] VITALS: BP 183/87
[2017-10-06 20:51] VITALS: BP 153/82
[2017-10-07 07:59] VITALS: BP 185/91
== END 2017-10-07 15:50 | DRG 314 ==
LOC: D.REHAB 15:29
PROVIDERS: Emergency Medicine
DX: I42.9 Cardiomyopathy, unspecified (principal); I50.21 Acute systolic (congestive) heart failure; G93.41 Metabolic encephalopathy; J96.01 Acute respiratory failure with hypoxia; J18.9 Pneumonia, unspecified organism; I13.0 Hypertensive heart and chronic kidney disease with heart failure and stage 1 through stage 4 chronic kidney disease, or unspecified chronic kidney disease; J44.1 Chronic obstructive pulmonary disease with (acute) exacerbation; N17.9 Acute kidney failure, unspecified; R13.12 Dysphagia, oropharyngeal phase; N18.9 Chronic kidney disease, unspecified; I27.20 Pulmonary hypertension, unspecified; D64.9 Anemia, unspecified; D72.829 Elevated white blood cell count, unspecified; J30.9 Allergic rhinitis, unspecified; R53.81 Other malaise; F41.9 Anxiety disorder, unspecified; I07.1 Rheumatic tricuspid insufficiency; I35.1 Nonrheumatic aortic (valve) insufficiency; Z87.891 Personal history of nicotine dependence

== ENCOUNTER 2018-02-10 16:37 | Inpatient (IN) | payer MEDICARE ==
[~2018-02-10] VITALS: Ht 170.2 cm; Wt 58.4 kg
--- NOTE | ~2018-02-10 | HEMODYNAMI ---
PATIENT:HOLLI NORRIS MEDICAL RECORD: [id number] : 50 [address] [id number] ADMISSION DATE: 02/10/18 Generatedon:02/11/201811:48 Patient name: HOLLI NORRIS Patient #: [id number] SSN: : 1950 Date of study: 02/11/2018 Page: Of Hemodynamic Procedure Report Patient Data Patient Demographics Procedure consent was obtained First Name: HOLLI Gender: Male Last Name: JR : 1950 Patient #: [id number] Age: 67 year(s) Race: Unknown Additional ID: [id number] Contact details Address: [address] [place] [address] State: [place] City: [facility] Zip code: [address] Past Medical History Allergies: No known allergies Admission Admission Data Admission Date: 02/10/2018 Admission Time: 22:39 Room #: D.2310 Height (in.): 67 BSA: 1.54 (m2) Height (cm.): 170.18 BMI: 16.6 (kg/m2) Weight (lbs.): 106 Weight (kg.): 48.08 Procedure Procedure Types Cath Procedure Peripheral Cath Diagnostic Procedure Cath Peripheral Abd/Extremity Visceral/Mesenteric Mesenteric Arteriogram (Abd Artery) Procedure Description Procedure Date Procedure Date: 02/11/2018 Procedure Start Time: 9:40 Procedure Staff Name Function Adal Romeo MD Performing Physician Kathie Esquivel RT Chair Mechanic Latanya Meyer RN Nurse Juan Garcia RT Scrub Procedure Data Cath Procedure Fluoroscopy Diagnostic fluoroscopy Total fluoroscopy Time: time: 30.3 min 30.3 min Diagnostic fluoroscopy Total fluoroscopy dose: dose: 1912 mGy 1912 mGy Contrast Material Contrast Material Type Amount (ml) Isovue 300 195 Diagnostic catheters Device Type Used For End Catheter Placement Angiodynamics SOS OMNI 2 NON B 5FR 65CM catheter ([id number]) Merit 5Fr Mikaless catheter ([id number]) Merit ULTRA BOLUS FLUSH 5Fr 65CM catheter ([id number]) [facility] Villanueva 2 cath 100cm ([id number]) Procedure Medications Medication Administration Route Dosage Lidocaine 1% added to field 20 Heparin Flush Bag added to field 3 bags (1000units/500ml NS) Nitroglycerin IC/IA I.A. 200 mcg Nitroglycerin IC/IA I.A. 200 mcg Hemodynamics Rest BSA: 1.54 (m2) O2 Consumption: Estimated: 199.72 (ml/min) O2 Consumption indexed : Estimated:129.69 (ml/min/m) Heart Rate: 106 (bpm) Snapshots Pre Cath Intra NCS Post Cath Vital Signs Time Heart Resp SPO2 etCO2 NIBP (mmHg) Rhythm Pain Sedation Rate (ipm) (%) (mmHg) Status Level (bpm) 9:20:34 105 [address] 0 (11) 5(A) , No pain 9:20:38 105 18 100 0 171/96(142) ST 0 (11) 5(A) , No pain 9:25:35 118 19 100 0 206/106(154) ST 0 (11) 5(A) , No pain 9:29:49 122 19 100 0 206/111(175) ST 0 (11) 5(A) , No pain 9:34:07 124 20 99 0 188/108(138) ST 0 (11) 5(A) , No pain 9:38:19 125 28 99 0 201/123(165) ST 0 (11) 5(A) , No pain 9:43:18 126 [address] 0 (11) 5(A) , No pain 9:44:42 [address] 0 (11) 5(A) Exceeded , No pain 9:49:41 123 [address] 0 (11) 5(A) , No pain 9:49:50 123 23 100 0 209/87(152) ST 0 (11) 5(A) , No pain 9:54:22 122 28 100 0 215/71(174) ST 0 (11) 5(A) , No pain 9:59:21 [address] 0 (11) 5(A) , No pain 10:00:45 [address] 0 (11) 5(A) Exceeded , No pain 10:05:44 118 [address] 0 (11) 5(A) , No pain 10:06:21 118 19 100 0 183/82(141) ST 0 (11) 5(A) , No pain 10:11:20 115 [address] 0 (11) 5(A) , No pain 10:11:59 116 24 100 0 194/66(142) ST 0 (11) 5(A) , No pain 10:16:21 117 20 100 0 120/51(80) ST 0 (11) 5(A) , No pain 10:21:20 111 [address] 0 (11) 5(A) , No pain 10:21:59 111 18 100 0 199/93(153) ST 0 (11) 5(A) , No pain 10:26:23 110 22 100 0 192/79(140) ST 0 (11) 5(A) , No pain 10:30:37 110 6 99 0 195/102(147) ST 0 (11) 5(A) , No pain 10:34:53 112 11 100 0 193/115(165) ST 0 (11) 5(A) , No pain 10:39:52 110 [address] 0 (11) 5(A) , No pain 10:41:16 [address] 0 (11) 5(A) Exceeded , No pain 10:43:17 108 18 100 0 227/96(162) ST 0 (11) 5(A) , No pain 10:48:00 109 20 100 0 222/62(151) ST 0 (11) 5(A) , No pain 10:52:36 112 18 100 0 194/64(144) ST 0 (11) 5(A) , No pain 10:57:35 [address] 0 (11) 5(A) , No pain 10:58:59 [address] 0 (11) 5(A) Exceeded , No pain 11:02:18 [address] 0 (11) 5(A) Exceeded , No pain 11:04:37 116 16 100 0 178/118(147) ST 0 (11) 5(A) , No pain 11:09:36 115 [address] 0 (11) 5(A) , No pain 11:11:00 [address] 0 (11) 5(A) Exceeded , No pain 11:15:59 115 [address] 0 (11) 5(A) , No pain 11:17:23 [address] 0 (11) 5(A) Exceeded , No pain 11:22:22 [address] 0 (11) 5(A) , No pain 11:22:26 115 13 0 105/55(0) ST 0 (11) 5(A) , No pain 11:27:26 [address] 0 (11) 5(A) , No pain 11:28:23 115 27 0 106/67(0) ST 0 (11) 5(A) , No pain 11:31:[address] 0 (11) 5(A) Exceeded , No pain 11:35:[address] 0 (11) 5(A) , No pain 11:39:55 0 106/68(0) ST 0 (11) 5(A) , No pain 11:43:[address] 0 (11) 5(A) , No pain 11:47:[address] 0 (11) 5(A) , No pain Medications Time Medication Route Dose Verified Delivered Reason Notes Effec tiveness by by 9:51:34 Lidocaine 1% added 20ml Adal Galeas Per to vial Agueda Romeo MD protocol field HEBERT 9:51:53 Heparin Flush added 3 bags Adal Galeas Per Bag to Agueda Romeo MD protocol (1000units/500ml field HEBERT NS) 10:49:57 Nitroglycerin I.A. 200mcg Adal Galeas Per IC/IA Agueda Romeo MD protocol 11:27:12 Nitroglycerin I.A. 200mcg Adal Galeas Per IC/IA Agueda Romeo MD protocol Procedure Log Time Note 8:25:56 Patient Height : 67 inches 8:26:04 Patient Weight : 106 lbs 8:27:04 Micropuncture VSI 4FR kit opened to sterile field. 8:28:23 DOC .035 wire (C48290) opened to sterile field. 8:28:50 TUBING Contrast Injection High Pressure (QIU862O) opened to sterile field. 8:29:00 SHEATH 5FR [place] (QBM527) opened to sterile field. 8:41:27 Use device set IR Diagnostic 8:41:29 Tegaderm 4 x 4 (1626W) opened to sterile field. 8:41:30 Sterile Angiographic Pack opened to sterile field. 8:41:31 Bag Decanter (2001S) opened to sterile field. 8:41:32 ACIST Manifold (62110) opened to sterile field. 8:41:34 ACIST Hand Control (12335) opened to sterile field. 8:41:34 ACIST Syringe (12458) opened to sterile field. 8:41:39 - 9:12:52 Time tracking: Regular hours (M-F 7:00 - 5:00) 9:13:39 Patient received from ICU to IR On ventilator. Tansferred to table in Supine position. 9:13:41 Correct patient and procedure confirmed by team. 9:13:46 Signed procedure consent form obtained from guardian. 9:13:55 H&P Date Dictated: 02/11/2018 Within 30 days and on chart.. 9:13:59 Family unavailable. 9:14:01 Patient NPO since Midnight. 9:14:13 Patient allergic to No known allergies 9:14:17 Is the patient allergic to Iodine/contrast media? No. 9:14:21 Is patient on blood thinner?No 9:14:25 Patient diabetic? No. 9:14:29 - 9:14:30 ----Pre-sedation anethsthesia assessment.---- 9:14:35 Previous problem with sedation/anesthesia? No ? 9:14:39 Snore? No 9:14:42 Sleep apnea? No 9:14:44 Deviated septum? No 9:14:49 Opens mouth fully? Unknown 9:14:53 Sticks out tongue? Unknown 9:15:01 Airway obstruction? Yes copd, chf 9:15:06 Dentures? No ? 9:15:12 noticed quarter size hive on right side of abdomen and another round hive eraser size on right hip omar from icu here loooking blood stoped dr melara called benadryl given 50 mg per omar and 120 mg solu medrol as well per dr melara and ordered to restart prbc. will contine to prep for mesenteric angiogram. 9:17:43 Pre procedure: right dorsailis pedis pulse Doppler 9:17:51 Pre procedure: right posterior tibial pulse Doppler 9:18:05 IV patent on arrival in right forearm with 0.45%NaCl at O. 9:18:16 Right groin area was prepped with chlora-prep and draped in sterile fashion 9:18:41 - 9:18:44 ECG and BP/O2 sat monitors applied to patient. 9:18:45 Vital chart was started 9:18:53 Full Disclosure recording started 9:19:14 Baseline sample Acquired. 9:20:06 - 9:27:13 hives decreases in depth and fading temp remains unchanged hr 120 and nbp increased . patient recieved epi during egd . dr romeo updated on condition and meds given. 9:35:13 Physician arrived 9:40:33 --------ALL STOP TIME OUT------ 9:40:33 Final Timeout: patient, procedure, and site verified with staff and physician. All members of the team are in agreement. 9:40:43 Procedure started. 9:40:52 Local anesthetic to right IJ vein with Lidocaine 1% by Adal Romeo MD.INITIAL ACCESS ONLY 9:41:21 3 lumen cvl placed 9:51:34 Lidocaine 1% 20ml vial added to field was administered by Adal Romeo MD; Per protocol; 9:51:53 Heparin Flush Bag (1000units/500ml NS) 3 bags added to field was administered by Adal Romeo MD; Per protocol; 9:53:42 Local anesthetic to right femoral artery with Lidocaine 1% by Adal Romeo MD.ADDITIONAL ACCESS 9:59:19 A [employer] OMNI 2 NON B 5FR 65CM catheter ([id number]) was advanced over the wire and used for . 10:00:35 Arterial access obtained using ultrasound guidance. 10:00:54 GLIDE CATHETER 5FR COBRA 65cm (CG502) opened to sterile field. 10:01:57 GLIDE WIRE ANGLE 180cm (QS8868) opened to sterile field. 10:05:35 A Meaningfy 5Fr Mikaless catheter (297721) was advanced over the wire and used for . 10:11:50 A Meaningfy ULTRA BOLUS FLUSH 5Fr 65CM catheter ([id number]) was advanced over the wire and used for . 10:18:18 GLIDE CATHETER 5FR COBRA 65cm (CG502) opened to sterile field. 10:20:24 TORQUE DEVICE PLASTIC .038 ( TD01) opened to sterile field. 10:25:33 TRANSEND STEERABLE wire ([id number]) opened to sterile field. 10:26:03 RENEGADE STAIGHT 150CM microcatheter ([id number]) opened to sterile field. 10:38:45 A Meaningfy impress Villanueva 2 cath 100cm ([id number]) was advanced over the wire and used for . 10:42:48 GLIDE WIRE GT DOUBLE ANGLE .018 (RG*[id number]) opened to sterile field. 10:49:57 Nitroglycerin IC/IA 200mcg I.A. was administered by Adal Romeo MD; Per protocol; 11:03:28 COIL Concerto 3mm x 4cm ([id number]) opened to sterile field. 11:04:06 IDL Instant Vice President And Portfolio Manager (ID1) opened to sterile field. 11:05:50 HAVING PROBLEM WITH OXYGEN STURATION MONITOR AND NBP HAVING TO SWITCH T O OTHER MONITOR 11:07:06 COIL Concerto 4mm x 10cm (PA021PRQID) opened to sterile field. 11:11:17 COIL Concerto 5 x 20 (VU12RVGQY) opened to sterile field. 11:15:11 COIL Concerto 4mm x 10cm ([id number]) opened to sterile field. 11:24:56 Procedure ended.(Physican Out) 11:25:13 Fluoroscopy time 30.30 minutes. 11:25:20 Fluoroscopy dose: 1912 mGy 11:25:20 Flurop Dose total: 1911 11:25:52 Contrast amount:Isovue 300 195ml. 11:27:12 Nitroglycerin IC/IA 200mcg I.A. was administered by Adal Romeo MD; Per protocol; 11:27:53 Procedure and supply charges have been captured, reviewed, submitted an d are correct. 11:28:34 Post Procedure Pulses reassessed and unchanged 11:47:37 Report given to ICU. 11:47:44 Patient transfered to ICU with Bed. 11:48:21 Vital chart was stopped Device Usage Item Name Manufacture Quantity Catalog Number Hospital Part Current Minimal Lot# / Charge Number Stock Stock Serial# Code Micropuncture VSI VASCULAR 1 [id number] 5 VSI 4FR kit SOLUTIONS DOC .035 wire Cook Medical 1 [id number] 281961 994171 5 ([id number]) TUBING [facility] Medical 1 [id number] 865801 090943 273684 5 Contrast Injection High Pressure ([id number]) SHEATH 5FR Terumo 1 FPI739 674630 975066 736798 40 Greenwood (VCE229) Tegaderm 4 x 4 3M 1 1626W 114723 418116 484141 5 (1626W) Sterile Cardinal 1 [id number] 068158 417244 5 Angiographic Health Pack Bag Decanter Microtek 1 485521 75774 088412 5 () Medical Inc. ACIST Manifold Acist Medical 1 19619 553740 481563 059121 5 (46974) Systems Inc ACIST Hand Acist Medical 1 29733 796275 436275 967183 5 Control Systems Inc (40617) ACIST Syringe Acist Medical 1 86177 097727 604468 402732 20 (32291) Systems Inc Angiodynamics Angiodynamics 1 [id number] 757681 01885 816130 5 SOS OMNI 2 NON B 5FR 65CM catheter ([id number]) GLIDE CATHETER Terumo 2 CG502 255846 470357 5 5FR COBRA 65cm (CG502) GLIDE WIRE Terumo 1 RV6709 108690 790482 737521 5 ANGLE 180cm (LH6572) Merit 5Fr Merit Medical 1 989455 725430 308966 5 Mikaless catheter (074044) Merit ULTRA Merit Medical 1 [id number] 047565 767184 5 BOLUS FLUSH 5Fr 65CM catheter ([id number]) TORQUE DEVICE [place] 1 TD01 710914 394897 075763 5 PLASTIC .038 ( Scientific TD01) TRANSEND [place] 1 [id number] 573633 741625 5 STEERABLE wire Scientific ([id number]) RENEGADE [place] 1 [id number] 173049 839756 5 STAIGHT 150CM Scientific microcatheter ([id number]) Merit impress Merit Medical 1 [id number] 866987 750740 0 Villanueva 2 cath 100cm (848718YWQ9) GLIDE WIRE GT Terumo 1 [id number] 406013 977779 5 425725 DOUBLE ANGLE .018 (RG*[id number]) COIL Concerto Medtronic 1 XN-5-9-HELIX 900081 213337 033575 5 [id number] 3mm x 4cm ([id number]) IDL Instant B. Chambers 1 ID-1 [id number] 1579326 512791 5 Vice President And Portfolio Manager (ID1) COIL Concerto Medtronic 2 QR-8-17-HELIX 541228 649299 545463 5 [id number] 4mm x 10cm [id number] ([id number]) COIL Concerto Medtronic 1 QK-1-9-HELIX 417039 233666 666548 5 [id number] 5 x 20 ([id number]) Signature Audit Horatio Stage Time Signature Unsigned Intra-Procedure 02/11/2018 Juan 11:48:17 AM Bethield RT (R) (CV) [id number] [place] [address]
--- NOTE | ~2018-02-10 | EC ---
PATIENT:HOLLI NORRIS DATE OF SERVICE: 02/10/18 SEX: M MEDICAL RECORD: [id number] DATE OF : [birth year] LOCATION:[facility] AGE OF PATIENT: 69 ADMISSION DATE: 02/10/18 REFERRING PHYSICIAN: INTERPRETING PHYSICIAN: AYAZ LYLES MD ECHOCARDIOGRAM REPORT ECHO CHARGES 4 ECHO COMPLETE Date: 02/24/18 CLINICAL DIAGNOSIS: TACHACARDIA ECHOCARDIOGRAPHIC MEASUREMENTS (adult normal given) AC root (d.<3.7cm) 2.8 cm LV Septum d (<1.2 cm> 1.0 cm Valve Excursion 1.3 cm LV Septum (systole) 1.2 cm Left Atria (s.<4.0cm> 2.5 cm LVPW d(<1.2cm) 1.1 cm RV (d.<2.3cm) 2.2 cm LVPW (sytole) 1.2 cm LV diastole(<5.6CM) 4.3 cm MV E-F(>70mm/sec) cm LV systole 3.9 cm LVOT Diameter 1.9 cm MV exc.(>10mm) cm Est.ejection fraction (50-75%) % DOPPLER: LVIT cm/sec A 115 cm/sec E 65 cm/sec LA cm/sec RVSP 33.3 mmHg LVOT 150 cm/sec AOP1/2T m/s Asc. Ao 191 cm/sec RVOT 106 cm/sec RA cm/sec PA 122 cm/sec AV Gradient Peak 14.7 mmHg AV Mean 6.5 mmHg AV Area 2.8 cm MV Gradient Peak 9.9 mmHg MV Mean 6.6 mmHg MV Area cm COMMENTS: Instructional Systems Design Consultant: Eli CARRERO Diversified Crops Supervisor: 1 Dr. Lyles TAPE# PACS Pericardial Effusion N DATE OF SERVICE: 02/24/2018 PROCEDURE: Echocardiogram. FINDINGS: 1. Left ventricular chamber size is within normal limits. Left ventricular systolic function is normal. Overall ejection fraction estimated at 55%. 2. Left atrium, right atrium, and right ventricle chamber sizes are within normal limits. 3. Valvular structures have normal structure and motion. ECHOCARDIOGRAM REPORT [id number] HOLLI NORRIS 4. Doppler interrogation reveals mild mitral regurgitation, mild tricuspid regurgitation, no other valvular insufficiency or stenosis. Pulmonary systolic pressure is normal estimated 33 mmHg. 5. No evidence of pericardial effusion or left ventricular thrombus. TRANSINT:[id number] Voice Confirmation ID: [id number] DOCUMENT ID: [id number] AYAZ LYLES MD at 1729 CC: [id number] DICTATION DATE: 02/24/18 1238 SURFACE LOGGING SYSTEMS LOGGER: 02/24/18 1242 ADM IN [facility] [address] [id number]
--- NOTE | ~2018-02-10 | CN ---
PATIENT NAME:HOLLI NORRIS MEDICAL RECORD: [id number] : 50 LOCATION:[id number] ADMIT DATE: 02/10/18 ACCOUNT: [id number] CONSULTING PHYSICIAN: RENEE MONTES MD REFERRING PHYSICIAN: TIANA GUIDRY MD DATE OF CONSULTATION: 02/11/2018 CONSULT REQUESTING PHYSICIAN: Tiana Guidry MD REASON FOR CONSULTATION: Vent management, hemorrhagic shock, respiratory failure. HISTORY OF PRESENT ILLNESS: Mr. Norris is a 67-year-old gentleman who was brought in with GI bleed. Seen by Dr. Tang, EGD was done and found out the patient has erosive esophagitis and also there was a bleeding from the fundus. The bleeding could not be stopped. The patient was taken to the x-ray department and embolization of the artery was done. Now, the bleeding has stopped, but the patient is orally intubated and sedated. The history was obtained by talking to Dr. Guidry as well as talking to the nursing staff. REVIEW OF SYSTEMS: Detail not obtainable. PAST MEDICAL HISTORY: 1. Hypertension. 2. Anxiety. 3. History of pneumonia. ALLERGIES: There are no known drug allergies. MEDICATIONS: On [employer] is reviewed. PERSONAL AND SOCIAL HISTORY: The patient is a current every day smoker. He is a nondrinker. FAMILY HISTORY: Significant for cardiovascular disease. PHYSICAL EXAMINATION: GENERAL: Now, the patient is orally intubated and sedated. He is on assist control mechanical ventilation. VITAL SIGNS: Blood pressure is 122/73, pulse is 112, respiration is 12, temperature 97.5, SPO2 is 100% on assist control mechanical ventilation. HEENT: Conjunctivae is pale. Sclerae is not icteric. NECK: Supple. There is no JVD. CHEST: There are left basal crackles. No wheezing. HEART: Rhythm regular, normal sound, no murmur. ABDOMEN: Soft. Bowel sounds are muffled. RECTAL: Deferred. EXTREMITIES: No cyanosis, no clubbing, no pedal edema. LABORATORY DATA: CBC: WBC 9.7, hemoglobin 7.1, hematocrit 21 and the platelet count is 119. Chemistry: Sodium is 134, potassium is 6.3, bicarbonate is 16, BUN is 65, creatinine 2.5. ABG: The pH is 7.17, pCO2 is 33.4, pO2 is 571, bicarbonate is 12.2. Liver enzymes; the AST is 80, ALT is 104. Alkaline phosphatase is 60. CONSULT REPORT [id number] HOLLI NORRIS IMPRESSION: 1. Acute respiratory failure which is multifactorial. 2. Upper gastrointestinal bleed. 3. Hemorrhagic shock. 4. Pneumonia of left lower lobe, possible aspiration. 5. Lactic acidosis. 6. Metabolic acidosis secondary to renal failure as well as hemorrhagic shock. 7. Acute renal failure secondary to acute tubular necrosis. 8. Hyperkalemia. 9. Anemia secondary to gastrointestinal bleed. 10. Elevated liver enzymes, most likely secondary to shock liver. 11. Congestive heart failure. 12. History of smoking and nicotine dependence, possible underlying chronic obstructive pulmonary disease. RECOMMENDATION: 1. Continue mechanical ventilation, adjust the setting. 2. Start prophylactic Zosyn for possible aspiration pneumonia. 3. Blood transfusion. 4. Start on bicarb drip. 5. DVT prophylaxis. 6. Follow up labs and series of CBC and BMP. 7. Nephrology and GI has been consulted. Discussed in length with the family, the prognosis is poor. The patient is DNR. Follow up labs and chest radiograph. Dr. Guidry, thank you for involving me in the care of Mr. Norris. TRANSINT:[id number] Voice Confirmation ID: [id number] DOCUMENT ID: [id number] RENEE MONTES MD CC: [id number] DICTATION DATE: 02/11/18 1425 TUMBLING AND ROLLING SUPERVISOR: 02/11/18 1532 ADM IN [facility] [address] [place] [address]
[2018-02-10 17:48] LABS: BASOPHILS 0.1 % (0-2); EOSINOPHILS 0.2 % (0-7); HEMATOCRIT 35.6 % (42.0-54.0); HEMOGLOBIN 11.8 g/dL (13.5-17.5); IMMATURE GRANULOCYTES 0.6 % (0-5); LYMPHOCYTES 14.1 % (15-50); MCH 27.3 pg (26.0-34.0); MCHC 33.1 g/dL (31.0-37.0); MCV 82.4 fL (80.0-100.0); MEAN PLATELET VOLUME 9.1 fL (7.4-10.4); MONOCYTES 6.3 % (2-11); NEUTROPHILS 78.7 % (40-80); RBC 4.32 10x6/uL (4.20-6.10); RDW 14.8 % (11.5-14.5); WBC 11.5 10x3/uL (4.8-10.8)
[2018-02-10 18:08] LABS: ALBUMIN 3.4 g/dL (3.4-5.0); ANION GAP 14.1 mmol/L (8-16); BILIRUBIN - TOTAL 0.34 mg/dL (0.2-1.3); CALCIUM 8.8 mg/dL (8.5-10.1); CREATININE - SERUM 1.9 mg/dL (0.6-1.3); POTASSIUM - SERUM 5.1 mmol/L (3.5-5.1); PROTEIN - SERUM 7.5 g/dL (6.4-8.2)
[2018-02-10 18:14] LABS: PLATELET COUNT 276 10x3/uL (130-400)
[2018-02-10 19:05] VITALS: BP 177/90
[2018-02-10 20:20] VITALS: BP 181/92
[2018-02-10 21:15] VITALS: BP 125/74
[2018-02-10 21:41] LABS: T4 THYROXIN - FREE 1.16 ng/dL (0.76-1.46); THYROID STIMULATING HORMONE 0.66 uIU/mL (0.36-3.74)
[2018-02-10 21:48] LABS: BASOPHILS 0.2 % (0-2); EOSINOPHILS 0.3 % (0-7); IMMATURE GRANULOCYTES 1.3 % (0-5); LYMPHOCYTES 34.5 % (15-50); MCH 26.8 pg (26.0-34.0); MCHC 32.1 g/dL (31.0-37.0); MCV 83.4 fL (80.0-100.0); MEAN PLATELET VOLUME 9.1 fL (7.4-10.4); MONOCYTES 5.5 % (2-11); NEUTROPHILS 58.2 % (40-80); PLATELET COUNT 260 10x3/uL (130-400); RDW 14.9 % (11.5-14.5); WBC 9.7 10x3/uL (4.8-10.8)
[2018-02-10 21:54] LABS: HEMATOCRIT 26.2 % (42.0-54.0); HEMOGLOBIN 8.4 g/dL (13.5-17.5); RBC 3.14 10x6/uL (4.20-6.10)
[2018-02-10 22:01] VITALS: BP 127/68
[2018-02-10 22:06] LABS: APPEARANCE CLEAR (CLEAR); BILIRUBIN NEGATIVE (NEGATIVE); COLOR YELLOW (YELLOW); GLUCOSE NEGATIVE (NEGATIVE); KETONE NEGATIVE (NEGATIVE); NITRITE NEGATIVE (NEGATIVE); PROTEIN NEGATIVE (NEGATIVE); SPECIFIC GRAVITY 1.015 (1.005-1.020); UROBILINOGEN NORMAL (NORMAL)
[2018-02-10 22:18] LABS: INR 1.03 (0.85-1.17); PROTIME 13.1 SECONDS (11.6-15.0)
[2018-02-10 23:00] VITALS: BP 153/94
[2018-02-10] MEDS ORDERED: LEXAPRO10 MG PO (23:59)
[2018-02-11] VITALS (26 sets, daily range): BP systolic 94–172; BP diastolic 36–98; Ht 170.2 cm; Wt 58.4 kg
[2018-02-11 05:03] LABS: HEMOGLOBIN 11.8 g/dL (13.5-17.5)
[2018-02-11 05:08] LABS: ALBUMIN 2.6 g/dL (3.4-5.0); ANION GAP 16.4 mmol/L (8-16); BILIRUBIN - TOTAL 1.39 mg/dL (0.2-1.3); CALCIUM 7.7 mg/dL (8.5-10.1); CARBON DIOXIDE 17.8 mmol/L (21.0-32.0); CREATININE - SERUM 2.2 mg/dL (0.6-1.3); POTASSIUM - SERUM 5.2 mmol/L (3.5-5.1)
[2018-02-11 05:13] LABS: INR 1.33 (0.85-1.17); PROTEIN - SERUM 5.5 g/dL (6.4-8.2)
[2018-02-11 12:08] LABS: BASOPHILS 0 % (0-2); EOSINOPHILS 0 % (0-7); IMMATURE GRANULOCYTES 1.9 % (0-5); LYMPHOCYTES 9.5 % (15-50); MCH 29.6 pg (26.0-34.0); MCHC 33.8 g/dL (31.0-37.0); MEAN PLATELET VOLUME 9.6 fL (7.4-10.4); NEUTROPHILS 84.6 % (40-80); RDW 13.8 % (11.5-14.5); WBC 9.7 10x3/uL (4.8-10.8)
[2018-02-11 12:13] LABS: HEMOGLOBIN 7.1 g/dL (13.5-17.5); MCV 87.5 fL (80.0-100.0); PLATELET COUNT 119 10x3/uL (130-400)
[2018-02-11 12:31] LABS: ANION GAP 18.3 mmol/L (8-16); CALCIUM 7.1 mg/dL (8.5-10.1); CREATININE - SERUM 2.5 mg/dL (0.6-1.3)
[2018-02-11 12:34] LABS: POTASSIUM - SERUM 6.3 mmol/L (3.5-5.1)
[2018-02-11 16:04] LABS: BASOPHILS 0.1 % (0-2); EOSINOPHILS 0 % (0-7); IMMATURE GRANULOCYTES 1.6 % (0-5); LYMPHOCYTES 4.7 % (15-50); MCH 30.1 pg (26.0-34.0); MCHC 34.5 g/dL (31.0-37.0); MCV 87.3 fL (80.0-100.0); MEAN PLATELET VOLUME 9.8 fL (7.4-10.4); MONOCYTES 5.1 % (2-11); NEUTROPHILS 88.5 % (40-80); RDW 14.9 % (11.5-14.5)
[2018-02-11 16:10] LABS: HEMATOCRIT 39.7 % (42.0-54.0); HEMOGLOBIN 13.7 g/dL (13.5-17.5); PLATELET COUNT 74 10x3/uL (130-400); RBC 4.55 10x6/uL (4.20-6.10); WBC 13.3 10x3/uL (4.8-10.8)
[2018-02-11 16:48] LABS: ANION GAP 18.3 mmol/L (8-16); CALCIUM 7.8 mg/dL (8.5-10.1); CREATININE - SERUM 2.4 mg/dL (0.6-1.3); POTASSIUM - SERUM 5.9 mmol/L (3.5-5.1)
[2018-02-11 16:49] LABS: CARBON DIOXIDE 20.6 mmol/L (21.0-32.0)
[2018-02-11 16:56] LABS: PLATELET ESTIMATE DECREASED
[2018-02-11 23:44] LABS: HEMATOCRIT 33.6 % (42.0-54.0); HEMOGLOBIN 12.1 g/dL (13.5-17.5)
[2018-02-12] VITALS (26 sets, daily range): BP systolic 92–177; BP diastolic 65–101
[2018-02-12 02:39] LABS: COLOR YELLOW (YELLOW)
[2018-02-12 02:40] LABS: APPEARANCE CLEAR (CLEAR); BILIRUBIN NEGATIVE (NEGATIVE); GLUCOSE NEGATIVE (NEGATIVE); KETONE NEGATIVE (NEGATIVE); NITRITE NEGATIVE (NEGATIVE); PROTEIN NEGATIVE (NEGATIVE); UROBILINOGEN NORMAL (NORMAL)
[2018-02-12 02:41] LABS: BACTERIA FEW /hpf (NONE SEEN); EPITHELIAL CELLS 0-5 /hpf (0-5); RED CELLS - URINE 0-5 /hpf (0-5); WHITE CELLS - URINE 0-5 /hpf (0-5)
[2018-02-12 04:15] LABS: HEMATOCRIT 33.6 % (42.0-54.0); HEMOGLOBIN 12.1 g/dL (13.5-17.5)
[2018-02-12 04:55] LABS: BASOPHILS 0 % (0-2); EOSINOPHILS 0 % (0-7); HEMATOCRIT 33.4 % (42.0-54.0); IMMATURE GRANULOCYTES 0.6 % (0-5); LYMPHOCYTES 7.4 % (15-50); MCH 29.7 pg (26.0-34.0); MCHC 35.9 g/dL (31.0-37.0); MEAN PLATELET VOLUME 10.6 fL (7.4-10.4); RBC 4.04 10x6/uL (4.20-6.10); WBC 10.1 10x3/uL (4.8-10.8)
[2018-02-12 05:02] LABS: ALBUMIN 2.3 g/dL (3.4-5.0); BILIRUBIN - TOTAL 1.41 mg/dL (0.2-1.3); CREATININE - SERUM 2.5 mg/dL (0.6-1.3); PROTEIN - SERUM 4.4 g/dL (6.4-8.2)
[2018-02-12 05:04] LABS: ANION GAP 15.3 mmol/L (8-16); CARBON DIOXIDE 28.7 mmol/L (21.0-32.0)
[2018-02-12 05:15] LABS: MCV 82.7 fL (80.0-100.0)
[2018-02-12 05:16] LABS: PLATELET COUNT 47 10x3/uL (130-400)
[2018-02-12 05:40] LABS: INR 1.39 (0.85-1.17); PROTIME 16.6 SECONDS (11.6-15.0)
[2018-02-12 12:25] LABS: HEMATOCRIT 33.9 % (42.0-54.0); HEMOGLOBIN 12.2 g/dL (13.5-17.5)
[2018-02-12 20:12] LABS: HEMATOCRIT 29.4 % (42.0-54.0); HEMOGLOBIN 10.6 g/dL (13.5-17.5); LYMPHOCYTES 5.3 % (15-50); MCH 30.2 pg (26.0-34.0); MCHC 36.1 g/dL (31.0-37.0); MCV 83.8 fL (80.0-100.0); MEAN PLATELET VOLUME 10.4 fL (7.4-10.4); NEUTROPHILS 89.8 % (40-80); RBC 3.51 10x6/uL (4.20-6.10); WBC 11.4 10x3/uL (4.8-10.8)
[2018-02-12 20:13] LABS: PLATELET COUNT 126 10x3/uL (130-400)
[2018-02-13] VITALS (26 sets, daily range): BP systolic 130–196; BP diastolic 70–97
[2018-02-13 03:58] LABS: HEMATOCRIT 29.3 % (42.0-54.0); HEMOGLOBIN 10.4 g/dL (13.5-17.5); LYMPHOCYTES 5.4 % (15-50); MCH 30.3 pg (26.0-34.0); MCHC 35.5 g/dL (31.0-37.0); MCV 85.4 fL (80.0-100.0); MEAN PLATELET VOLUME 10.9 fL (7.4-10.4); NEUTROPHILS 88.6 % (40-80); PLATELET COUNT 116 10x3/uL (130-400); RBC 3.43 10x6/uL (4.20-6.10); RDW 16.3 % (11.5-14.5); WBC 11.8 10x3/uL (4.8-10.8)
[2018-02-13 04:00] LABS: INR 1.36 (0.85-1.17); PROTIME 16.3 SECONDS (11.6-15.0)
[2018-02-13 04:01] LABS: ANION GAP 8.4 mmol/L (8-16); BILIRUBIN - TOTAL 0.73 mg/dL (0.2-1.3); CALCIUM 7.4 mg/dL (8.5-10.1); CARBON DIOXIDE 30.7 mmol/L (21.0-32.0); CREATININE - SERUM 2.4 mg/dL (0.6-1.3); POTASSIUM - SERUM 4.1 mmol/L (3.5-5.1); PROTEIN - SERUM 4.9 g/dL (6.4-8.2)
[2018-02-13 09:28] LABS: HEMOGLOBIN 9.9 g/dL (13.5-17.5)
[2018-02-13 14:57] LABS: BASOPHILS 0.1 % (0-2); EOSINOPHILS 0.1 % (0-7); HEMATOCRIT 30.9 % (42.0-54.0); HEMOGLOBIN 10.7 g/dL (13.5-17.5); IMMATURE GRANULOCYTES 1.2 % (0-5); MCH 29.8 pg (26.0-34.0); MCHC 34.6 g/dL (31.0-37.0); MCV 86.1 fL (80.0-100.0); MONOCYTES 5.4 % (2-11); NEUTROPHILS 90.2 % (40-80); PLATELET COUNT 103 10x3/uL (130-400); RBC 3.59 10x6/uL (4.20-6.10); RDW 15.3 % (11.5-14.5); WBC 11.9 10x3/uL (4.8-10.8)
[2018-02-13 22:55] LABS: BASOPHILS 0.1 % (0-2); EOSINOPHILS 0 % (0-7); HEMATOCRIT 28.5 % (42.0-54.0); HEMOGLOBIN 9.8 g/dL (13.5-17.5); IMMATURE GRANULOCYTES 0.9 % (0-5); LYMPHOCYTES 4.6 % (15-50); MCH 29.6 pg (26.0-34.0); MCHC 34.4 g/dL (31.0-37.0); MCV 86.1 fL (80.0-100.0); MONOCYTES 4.3 % (2-11); NEUTROPHILS 90.1 % (40-80); PLATELET COUNT 95 10x3/uL (130-400); RBC 3.31 10x6/uL (4.20-6.10); RDW 15.5 % (11.5-14.5); WBC 10.8 10x3/uL (4.8-10.8)
[2018-02-14] VITALS (24 sets, daily range): BP systolic 139–220; BP diastolic 67–89
[2018-02-14 04:19] LABS: BASOPHILS 0.1 % (0-2); EOSINOPHILS 0 % (0-7); HEMATOCRIT 29.7 % (42.0-54.0); HEMOGLOBIN 10.1 g/dL (13.5-17.5); LYMPHOCYTES 3.1 % (15-50); MCH 29.4 pg (26.0-34.0); MCV 86.3 fL (80.0-100.0); MEAN PLATELET VOLUME 10.6 fL (7.4-10.4); MONOCYTES 5.8 % (2-11); PLATELET COUNT 99 10x3/uL (130-400); RBC 3.44 10x6/uL (4.20-6.10); RDW 15.6 % (11.5-14.5); WBC 11.6 10x3/uL (4.8-10.8)
[2018-02-14 04:37] LABS: ALBUMIN 2.2 g/dL (3.4-5.0); ANION GAP 7.9 mmol/L (8-16); BILIRUBIN - TOTAL 0.55 mg/dL (0.2-1.3); CALCIUM 8.2 mg/dL (8.5-10.1); CARBON DIOXIDE 31.8 mmol/L (21.0-32.0); CREATININE - SERUM 2.2 mg/dL (0.6-1.3); MAGNESIUM - SERUM 2.3 mg/dL (1.8-2.4); POTASSIUM - SERUM 3.7 mmol/L (3.5-5.1); PROTEIN - SERUM 5.6 g/dL (6.4-8.2)
[2018-02-14 19:06] LABS: HEMATOCRIT 29.8 % (42.0-54.0); HEMOGLOBIN 10.2 g/dL (13.5-17.5)
[2018-02-15] VITALS (24 sets, daily range): BP systolic 122–221; BP diastolic 65–95
[2018-02-15 00:48] LABS: HEMATOCRIT 30.2 % (42.0-54.0); HEMOGLOBIN 10.1 g/dL (13.5-17.5)
[2018-02-15 05:07] LABS: BASOPHILS 0.2 % (0-2); EOSINOPHILS 0 % (0-7); HEMATOCRIT 30.5 % (42.0-54.0); HEMOGLOBIN 10.2 g/dL (13.5-17.5); IMMATURE GRANULOCYTES 0.8 % (0-5); LYMPHOCYTES 2.4 % (15-50); MCH 29.6 pg (26.0-34.0); MCHC 33.4 g/dL (31.0-37.0); MEAN PLATELET VOLUME 10.5 fL (7.4-10.4); MONOCYTES 8.4 % (2-11); NEUTROPHILS 88.2 % (40-80); PLATELET COUNT 101 10x3/uL (130-400); RBC 3.45 10x6/uL (4.20-6.10); RDW 15.7 % (11.5-14.5); WBC 11.9 10x3/uL (4.8-10.8)
[2018-02-15 05:11] LABS: MCV 88.4 fL (80.0-100.0)
[2018-02-15 05:16] LABS: INR 1.15 (0.85-1.17); PROTIME 14.3 SECONDS (11.6-15.0)
[2018-02-15 05:25] LABS: ANION GAP 9.5 mmol/L (8-16); BILIRUBIN - TOTAL 0.61 mg/dL (0.2-1.3); CALCIUM 8.1 mg/dL (8.5-10.1); CARBON DIOXIDE 30.5 mmol/L (21.0-32.0); MAGNESIUM - SERUM 2.4 mg/dL (1.8-2.4); PROTEIN - SERUM 5.3 g/dL (6.4-8.2)
[2018-02-15 16:48] LABS: HEMATOCRIT 31.4 % (42.0-54.0); HEMOGLOBIN 10.5 g/dL (13.5-17.5)
[2018-02-15 22:19] LABS: HEMATOCRIT 32.9 % (42.0-54.0); HEMOGLOBIN 10.8 g/dL (13.5-17.5)
[2018-02-16] VITALS (25 sets, daily range): BP systolic 133–199; BP diastolic 75–96
[2018-02-16 03:39] LABS: BASOPHILS 0.2 % (0-2); EOSINOPHILS 0 % (0-7); HEMATOCRIT 30.5 % (42.0-54.0); HEMOGLOBIN 10.1 g/dL (13.5-17.5); IMMATURE GRANULOCYTES 2.5 % (0-5); LYMPHOCYTES 11.7 % (15-50); MCH 29.4 pg (26.0-34.0); MCHC 33.1 g/dL (31.0-37.0); MCV 88.9 fL (80.0-100.0); MEAN PLATELET VOLUME 9.8 fL (7.4-10.4); NEUTROPHILS 83.6 % (40-80); PLATELET COUNT 96 10x3/uL (130-400); RBC 3.43 10x6/uL (4.20-6.10); RDW 15.5 % (11.5-14.5); WBC 11.7 10x3/uL (4.8-10.8)
[2018-02-16 03:45] LABS: HELICOBACTER PYLORI IGG POSITIVE (NEGATIVE)
[2018-02-16 03:52] LABS: ALBUMIN 2.1 g/dL (3.4-5.0); ANION GAP 13.5 mmol/L (8-16); BILIRUBIN - TOTAL 1.08 mg/dL (0.2-1.3); CALCIUM 7.9 mg/dL (8.5-10.1); CREATININE - SERUM 1.6 mg/dL (0.6-1.3); MAGNESIUM - SERUM 2.2 mg/dL (1.8-2.4); POTASSIUM - SERUM 4.5 mmol/L (3.5-5.1); PROTEIN - SERUM 5.3 g/dL (6.4-8.2)
[2018-02-16 10:23] LABS: HEMATOCRIT 31.2 % (42.0-54.0); HEMOGLOBIN 10.3 g/dL (13.5-17.5)
[2018-02-16 15:56] LABS: HEMATOCRIT 31.6 % (42.0-54.0); HEMOGLOBIN 10.4 g/dL (13.5-17.5)
[2018-02-16 22:45] LABS: HEMATOCRIT 29.9 % (42.0-54.0); HEMOGLOBIN 9.8 g/dL (13.5-17.5)
[2018-02-17] VITALS (26 sets, daily range): BP systolic 133–189; BP diastolic 71–95
[2018-02-17 04:59] LABS: BASOPHILS 0.1 % (0-2); EOSINOPHILS 0 % (0-7); HEMATOCRIT 29.4 % (42.0-54.0); HEMOGLOBIN 9.6 g/dL (13.5-17.5); IMMATURE GRANULOCYTES 4.7 % (0-5); LYMPHOCYTES 8.9 % (15-50); MCH 29.4 pg (26.0-34.0); MCHC 32.7 g/dL (31.0-37.0); MCV 89.9 fL (80.0-100.0); MEAN PLATELET VOLUME 10.5 fL (7.4-10.4); MONOCYTES 6.2 % (2-11); NEUTROPHILS 80.1 % (40-80); PLATELET COUNT 87 10x3/uL (130-400); RBC 3.27 10x6/uL (4.20-6.10); RDW 15.2 % (11.5-14.5); WBC 8.9 10x3/uL (4.8-10.8)
[2018-02-17 05:24] LABS: ANION GAP 12.5 mmol/L (8-16); BILIRUBIN - TOTAL 1.18 mg/dL (0.2-1.3); CALCIUM 7.8 mg/dL (8.5-10.1); CARBON DIOXIDE 25.4 mmol/L (21.0-32.0); CREATININE - SERUM 1.3 mg/dL (0.6-1.3); MAGNESIUM - SERUM 2.2 mg/dL (1.8-2.4); POTASSIUM - SERUM 4.9 mmol/L (3.5-5.1)
[2018-02-17 10:43] LABS: HEMATOCRIT 30.5 % (42.0-54.0); HEMOGLOBIN 9.9 g/dL (13.5-17.5)
[2018-02-17 16:47] LABS: HEMATOCRIT 32.2 % (42.0-54.0); HEMOGLOBIN 10.7 g/dL (13.5-17.5)
[2018-02-17 22:50] LABS: HEMATOCRIT 33.4 % (42.0-54.0); HEMOGLOBIN 10.9 g/dL (13.5-17.5)
[2018-02-18] VITALS (46 sets, daily range): BP systolic 104–194; BP diastolic 47–102
[2018-02-18 04:20] LABS: BASOPHILS 0.2 % (0-2); EOSINOPHILS 0 % (0-7); HEMATOCRIT 31.9 % (42.0-54.0); HEMOGLOBIN 10.7 g/dL (13.5-17.5); LYMPHOCYTES 4.6 % (15-50); MCH 29.5 pg (26.0-34.0); MCHC 33.5 g/dL (31.0-37.0); MEAN PLATELET VOLUME 10.7 fL (7.4-10.4); MONOCYTES 2.9 % (2-11); NEUTROPHILS 88.3 % (40-80); PLATELET COUNT 78 10x3/uL (130-400); RBC 3.63 10x6/uL (4.20-6.10); RDW 14.6 % (11.5-14.5)
[2018-02-18 04:27] LABS: MCV 87.9 fL (80.0-100.0); WBC 11.6 10x3/uL (4.8-10.8)
[2018-02-18 04:33] LABS: INR 1.11 (0.85-1.17); PROTIME 13.9 SECONDS (11.6-15.0)
[2018-02-18 04:39] LABS: ANION GAP 14.8 mmol/L (8-16); BILIRUBIN - TOTAL 1.55 mg/dL (0.2-1.3); CALCIUM 7.8 mg/dL (8.5-10.1); CARBON DIOXIDE 23.5 mmol/L (21.0-32.0); CREATININE - SERUM 1.1 mg/dL (0.6-1.3); POTASSIUM - SERUM 4.3 mmol/L (3.5-5.1); PROTEIN - SERUM 5.1 g/dL (6.4-8.2)
[2018-02-18 12:07] LABS: HEMATOCRIT 32.4 % (42.0-54.0); HEMOGLOBIN 10.9 g/dL (13.5-17.5)
[2018-02-18 13:17] LABS: FUNGUS STAIN Final report (())
[2018-02-18 16:37] LABS: HEMATOCRIT 31.5 % (42.0-54.0); HEMOGLOBIN 10.8 g/dL (13.5-17.5)
[2018-02-18 20:09] LABS: ACID FAST SMEAR Negative (()); AFB SPECIMEN PROCESSING Concentration (())
[2018-02-18 22:20] LABS: HEMATOCRIT 32.5 % (42.0-54.0)
[2018-02-19] VITALS (96 sets, daily range): BP systolic 123–184; BP diastolic 72–122
[2018-02-19 05:23] LABS: INR 1.12 (0.85-1.17)
[2018-02-19 05:24] LABS: D-DIMER-QUANTITATIVE 2.89 ug/mLFEU (0.20-0.54)
[2018-02-19 05:30] LABS: ALBUMIN 2.2 g/dL (3.4-5.0); ANION GAP 13.9 mmol/L (8-16); BILIRUBIN - DIRECT 0.97 mg/dL (0.00-0.30); BILIRUBIN - INDIRECT 0.5 mg/dL (0.00-1.00); BILIRUBIN - TOTAL 1.47 mg/dL (0.2-1.3); CALCIUM 8.1 mg/dL (8.5-10.1); CARBON DIOXIDE 22.8 mmol/L (21.0-32.0); CREATININE - SERUM 1.1 mg/dL (0.6-1.3); MAGNESIUM - SERUM 1.7 mg/dL (1.8-2.4); PHOSPHOROUS 2.2 mg/dL (2.5-4.9); POTASSIUM - SERUM 3.7 mmol/L (3.5-5.1); PROTEIN - SERUM 5.5 g/dL (6.4-8.2)
[2018-02-19 06:49] LABS: HEMATOCRIT 31.4 % (42.0-54.0); HEMOGLOBIN 10.9 g/dL (13.5-17.5); MCH 29.7 pg (26.0-34.0); MCHC 34.7 g/dL (31.0-37.0); MCV 85.6 fL (80.0-100.0); MEAN PLATELET VOLUME 11.6 fL (7.4-10.4); PLATELET COUNT 100 10x3/uL (130-400); RBC 3.67 10x6/uL (4.20-6.10); RDW 14.5 % (11.5-14.5); WBC 22.1 10x3/uL (4.8-10.8)
[2018-02-19 07:34] LABS: ANISOCYTOSIS OCC; EOSINOPHILS 2 % (0-7); LYMPHOCYTES 5 % (15-50); MONOCYTES 2 % (2-11); NEUTROPHILS 78 % (40-80); PLATELET ESTIMATE DECREASED
[2018-02-19 11:22] LABS: HEMATOCRIT 30.3 % (42.0-54.0); HEMOGLOBIN 10.4 g/dL (13.5-17.5)
[2018-02-19 15:48] LABS: HEMATOCRIT 29.4 % (42.0-54.0)
[2018-02-19 22:24] LABS: HEMATOCRIT 28.7 % (42.0-54.0); HEMOGLOBIN 9.9 g/dL (13.5-17.5)
[2018-02-20] VITALS (78 sets, daily range): BP systolic 134–187; BP diastolic 65–139
[2018-02-20 04:36] LABS: eGFR NON AFRICAN AMERICAN 25 mL/min (90-120)
[2018-02-20 06:06] LABS: BASOPHILS 0.1 % (0-2); EOSINOPHILS 0 % (0-7); HEMATOCRIT 27.7 % (42.0-54.0); HEMOGLOBIN 9.6 g/dL (13.5-17.5); IMMATURE GRANULOCYTES 0.9 % (0-5); LYMPHOCYTES 1.3 % (15-50); MCH 29.2 pg (26.0-34.0); MCHC 34.7 g/dL (31.0-37.0); MCV 84.2 fL (80.0-100.0); MEAN PLATELET VOLUME 11.1 fL (7.4-10.4); MONOCYTES 2.8 % (2-11); NEUTROPHILS 94.9 % (40-80); PLATELET COUNT 116 10x3/uL (130-400); RBC 3.29 10x6/uL (4.20-6.10); RDW 14.5 % (11.5-14.5); WBC 18.5 10x3/uL (4.8-10.8)
[2018-02-20 06:24] LABS: ALBUMIN 2.2 g/dL (3.4-5.0); ALKALINE PHOSPHATASE 100 U/L (46-116); ALT (SGPT) 64 U/L (10-68); BILIRUBIN - TOTAL 0.98 mg/dL (0.2-1.3); CALC OSMOLALITY 279 mosm/kg (275-300); CARBON DIOXIDE 24.2 mmol/L (21.0-32.0); CHLORIDE - SERUM 100 mmol/L (98-107); GLUCOSE 122 mg/dL (74-106); POTASSIUM - SERUM 3.4 mmol/L (3.5-5.1); PROTEIN - SERUM 5.7 g/dL (6.4-8.2); SODIUM 135 mmol/L (136-145); UREA NITROGEN 39 mg/dL (7-18); eGFR NON AFRICAN AMERICAN 79 mL/min (90-120)
[2018-02-21] VITALS (25 sets, daily range): BP systolic 131–160; BP diastolic 64–84
[2018-02-21 05:49] LABS: BASOPHILS 0 % (0-2); EOSINOPHILS 0 % (0-7); HEMATOCRIT 26.4 % (42.0-54.0); IMMATURE GRANULOCYTES 0.5 % (0-5); LYMPHOCYTES 2.1 % (15-50); MCH 28.8 pg (26.0-34.0); MCHC 34.1 g/dL (31.0-37.0); MCV 84.3 fL (80.0-100.0); MEAN PLATELET VOLUME 10.8 fL (7.4-10.4); MONOCYTES 1.7 % (2-11); NEUTROPHILS 95.7 % (40-80); PLATELET COUNT 123 10x3/uL (130-400); RBC 3.13 10x6/uL (4.20-6.10); RDW 14.7 % (11.5-14.5)
[2018-02-21 05:51] LABS: WBC 6.3 10x3/uL (4.8-10.8)
[2018-02-21 06:08] LABS: ALBUMIN 1.7 g/dL (3.4-5.0); ALKALINE PHOSPHATASE 64 U/L (46-116); BILIRUBIN - TOTAL 0.81 mg/dL (0.2-1.3); CALC OSMOLALITY 283 mosm/kg (275-300); CALCIUM 7.8 mg/dL (8.5-10.1); CARBON DIOXIDE 22.3 mmol/L (21.0-32.0); CHLORIDE - SERUM 104 mmol/L (98-107); GLUCOSE 102 mg/dL (74-106); MAGNESIUM - SERUM 1.6 mg/dL (1.8-2.4); PHOSPHOROUS 1.9 mg/dL (2.5-4.9); POTASSIUM - SERUM 3.3 mmol/L (3.5-5.1); PROTEIN - SERUM 5.1 g/dL (6.4-8.2); SODIUM 137 mmol/L (136-145); UREA NITROGEN 41 mg/dL (7-18); eGFR NON AFRICAN AMERICAN 79 mL/min (90-120)
[2018-02-21 06:14] LABS: ALT (SGPT) 44 U/L (10-68)
[2018-02-22] VITALS (25 sets, daily range): BP systolic 109–156; BP diastolic 54–75
[2018-02-22 04:31] LABS: BASOPHILS 0 % (0-2); EOSINOPHILS 0 % (0-7); HEMATOCRIT 23.4 % (42.0-54.0); HEMOGLOBIN 7.9 g/dL (13.5-17.5); IMMATURE GRANULOCYTES 0.7 % (0-5); LYMPHOCYTES 1.3 % (15-50); MCH 28.6 pg (26.0-34.0); MCHC 33.8 g/dL (31.0-37.0); MCV 84.8 fL (80.0-100.0); MEAN PLATELET VOLUME 11.1 fL (7.4-10.4); MONOCYTES 1.2 % (2-11); NEUTROPHILS 96.8 % (40-80); RBC 2.76 10x6/uL (4.20-6.10); RDW 14.7 % (11.5-14.5)
[2018-02-22 04:35] LABS: PLATELET COUNT 151 10x3/uL (130-400)
[2018-02-22 04:48] LABS: ALBUMIN 1.7 g/dL (3.4-5.0); BILIRUBIN - TOTAL 0.67 mg/dL (0.2-1.3); CALCIUM 7.9 mg/dL (8.5-10.1); CARBON DIOXIDE 21.3 mmol/L (21.0-32.0); POTASSIUM - SERUM 3.3 mmol/L (3.5-5.1); PROTEIN - SERUM 5.4 g/dL (6.4-8.2)
[2018-02-22 04:49] LABS: CREATININE - SERUM 1.3 mg/dL (0.6-1.3); MAGNESIUM - SERUM 2.3 mg/dL (1.8-2.4); PHOSPHOROUS 3.1 mg/dL (2.5-4.9)
[2018-02-23] VITALS (25 sets, daily range): BP systolic 139–157; BP diastolic 69–87
[2018-02-23 04:08] LABS: BASOPHILS 0 % (0-2); EOSINOPHILS 0 % (0-7); IMMATURE GRANULOCYTES 0.4 % (0-5); LYMPHOCYTES 1.2 % (15-50); MCH 28.8 pg (26.0-34.0); MCHC 34.3 g/dL (31.0-37.0); MEAN PLATELET VOLUME 10.7 fL (7.4-10.4); MONOCYTES 1.1 % (2-11); NEUTROPHILS 97.3 % (40-80); PLATELET COUNT 152 10x3/uL (130-400); WBC 11.3 10x3/uL (4.8-10.8)
[2018-02-23 04:10] LABS: HEMATOCRIT 28.9 % (42.0-54.0); HEMOGLOBIN 9.9 g/dL (13.5-17.5); RBC 3.44 10x6/uL (4.20-6.10)
[2018-02-23 04:20] LABS: ANION GAP 19.7 mmol/L (8-16); CALCIUM 8.1 mg/dL (8.5-10.1); CARBON DIOXIDE 20.1 mmol/L (21.0-32.0)
[2018-02-23 04:26] LABS: CREATININE - SERUM 1.7 mg/dL (0.6-1.3); POTASSIUM - SERUM 3.8 mmol/L (3.5-5.1)
[2018-02-24] VITALS (23 sets, daily range): BP systolic 134–157; BP diastolic 64–87
[2018-02-24 06:27] LABS: ANION GAP 17.4 mmol/L (8-16); CALCIUM 8.3 mg/dL (8.5-10.1); CARBON DIOXIDE 17.5 mmol/L (21.0-32.0); MAGNESIUM - SERUM 2.4 mg/dL (1.8-2.4); PHOSPHOROUS 4.8 mg/dL (2.5-4.9); POTASSIUM - SERUM 3.9 mmol/L (3.5-5.1)
[2018-02-24 06:40] LABS: BASOPHILS 0 % (0-2); EOSINOPHILS 0.1 % (0-7); HEMATOCRIT 29.7 % (42.0-54.0); HEMOGLOBIN 10.2 g/dL (13.5-17.5); IMMATURE GRANULOCYTES 1.3 % (0-5); LYMPHOCYTES 0.9 % (15-50); MCH 29.3 pg (26.0-34.0); MCHC 34.3 g/dL (31.0-37.0); MCV 85.3 fL (80.0-100.0); MEAN PLATELET VOLUME 10.8 fL (7.4-10.4); MONOCYTES 1.3 % (2-11); NEUTROPHILS 96.4 % (40-80); PLATELET COUNT 157 10x3/uL (130-400); RBC 3.48 10x6/uL (4.20-6.10); RDW 15.6 % (11.5-14.5)
[2018-02-24 16:19] LABS: FUNGUS CULTURE RESULT 1 Candida albicans (()); FUNGUS MYCOLOGY CULTURE Preliminary report (())
[2018-02-25 03:00] VITALS: BP 142/68
[2018-02-25 07:00] VITALS: BP 153/73
[2018-02-25 07:30] VITALS: BP 153/73
== END 2018-02-25 10:31 | disposition hospice, inpatient (51) | DRG 356 ==
LOC: D.ER 16:37 → D.ICU 22:39 → EDBD 22:39 → D.ICU 02-25 10:31
PROVIDERS: Family Medicine; General Practice; Internal Medicine Gastroenterology; Internal Medicine Nephrology; Internal Medicine Pulmonary Disease
PROC: 04L33DZ Occlusion of Hepatic Artery with Intraluminal Device, Percutaneous Approach (ICD-10-PCS; 2018-02-11)
PROC: 5A1955Z Respiratory Ventilation, Greater than 96 Consecutive Hours (ICD-10-PCS; 2018-02-11)
PROC: 0BH17EZ Insertion of Endotracheal Airway into Trachea, Via Natural or Artificial Opening (ICD-10-PCS; 2018-02-11)
PROC: 3E0G8TZ Introduction of Destructive Agent into Upper GI, Via Natural or Artificial Opening Endoscopic (ICD-10-PCS; principal; 2018-02-11 06:47)
PROC: 0B9B8ZZ Drainage of Left Lower Lobe Bronchus, Via Natural or Artificial Opening Endoscopic (ICD-10-PCS; 2018-02-17)
PROC: 0B968ZZ Drainage of Right Lower Lobe Bronchus, Via Natural or Artificial Opening Endoscopic (ICD-10-PCS; 2018-02-17)
PROC: 0B998ZZ Drainage of Lingula Bronchus, Via Natural or Artificial Opening Endoscopic (ICD-10-PCS; 2018-02-20)
PROC: 0B948ZZ Drainage of Right Upper Lobe Bronchus, Via Natural or Artificial Opening Endoscopic (ICD-10-PCS; 2018-02-20)
PROC: 0B988ZZ Drainage of Left Upper Lobe Bronchus, Via Natural or Artificial Opening Endoscopic (ICD-10-PCS; 2018-02-20)
PROC: 0B958ZZ Drainage of Right Middle Lobe Bronchus, Via Natural or Artificial Opening Endoscopic (ICD-10-PCS; 2018-02-20)
PROC: 0B938ZZ Drainage of Right Main Bronchus, Via Natural or Artificial Opening Endoscopic (ICD-10-PCS; 2018-02-20)
PROC: 0B978ZZ Drainage of Left Main Bronchus, Via Natural or Artificial Opening Endoscopic (ICD-10-PCS; 2018-02-20)
PROC: 0B9B8ZZ Drainage of Left Lower Lobe Bronchus, Via Natural or Artificial Opening Endoscopic (ICD-10-PCS; 2018-02-20)
PROC: 0B968ZZ Drainage of Right Lower Lobe Bronchus, Via Natural or Artificial Opening Endoscopic (ICD-10-PCS; 2018-02-20)
DX: K26.4 Chronic or unspecified duodenal ulcer with hemorrhage (principal); R57.8 Other shock; K72.00 Acute and subacute hepatic failure without coma; J96.21 Acute and chronic respiratory failure with hypoxia; N17.0 Acute kidney failure with tubular necrosis; I50.23 Acute on chronic systolic (congestive) heart failure; J15.212 Pneumonia due to Methicillin resistant Staphylococcus aureus; J15.6 Pneumonia due to other Gram-negative bacteria; A41.9 Sepsis, unspecified organism; D62 Acute posthemorrhagic anemia; J44.1 Chronic obstructive pulmonary disease with (acute) exacerbation; I42.9 Cardiomyopathy, unspecified; E87.2 Acidosis; T17.590A Other foreign object in bronchus causing asphyxiation, initial encounter; J44.0 Chronic obstructive pulmonary disease with (acute) lower respiratory infection; J98.11 Atelectasis; Z66 Do not resuscitate; K29.81 Duodenitis with bleeding; K29.70 Gastritis, unspecified, without bleeding; K20.9 Esophagitis, unspecified; F17.200 Nicotine dependence, unspecified, uncomplicated; R63.4 Abnormal weight loss; I11.0 Hypertensive heart disease with heart failure; I50.9 Heart failure, unspecified; E87.5 Hyperkalemia; I27.20 Pulmonary hypertension, unspecified; R53.81 Other malaise; I34.0 Nonrheumatic mitral (valve) insufficiency; I07.1 Rheumatic tricuspid insufficiency; D69.6 Thrombocytopenia, unspecified

== ENCOUNTER 2018-02-25 10:30 | Inpatient (IN) | payer OTHER ==
[~2018-02-25] VITALS: Ht 170.2 cm; Wt 58.6 kg
[~2018-02-25 10:30] MED LIST changes: +LEXAPRO10 MG PO
[2018-02-25 10:56] VITALS: BP 153/73; Ht 170.2 cm; Wt 58.6 kg
[2018-02-25 12:00] VITALS: BP 151/77
[2018-02-25 13:00] VITALS: BP 145/69
[2018-02-25 14:00] VITALS: BP 148/72
== END 2018-02-25 17:40 | DRG 951 ==
LOC: D.ICU 10:30
DX: Z51.5 Encounter for palliative care (principal)